=== PATIENT | male | born 1960 | race Caucasian/White ===

== ENCOUNTER 2018-11-30 13:50 | Observation (INO) ==
--- NOTE | 2018-11-30 16:11 | Emergency Department Note ---
ED Disposition Clinical Impression: Abscess of abdominal wall Cellulitis Qualifiers: Site of cellulitis: trunk Site of cellulitis of trunk: abdominal wall Qualified Code(s): L03.311 - Cellulitis of abdominal wall Disposition: Admitted as Observation Condition on Discharge: Fair - Critical Care Critical Care Time: No Attestation: On 11/30/18, the high probability of a clinically significant, sudden or life threatening deterioration of the following system(s) required my full and direct attention, intervention and personal management. The time I documented below is in addition to time spent performing reported procedures but includes the following listed in this critical care notation. Medical Decision Making - Sanjeev Inquiry Pt receiving controlled substance: No Vital Signs: 11/30/18 14:09 11/30/18 17:16 Temperature 98.2 F Temperature Source Oral Pulse Rate [Right Brachial] 104 H 89 Respiratory Rate 16 Blood Pressure [Right Arm] 121/68 155/87 H Blood Pressure Mean [Right Arm] 85 109 Blood Pressure Source [Right Arm] Automatic Cuff Blood Pressure Position [Right Arm] Supine 02 Sat by Pulse Oximetry 98 97 Oxygen Delivery Method Room Air - Lab Data Lab Results 11/30/18 16:26: WBC 13.6 H, RBC 5.22, Hgb 15.5, Hct 48.4, MCV 92.7, MCH 29.6, MCHC 32.0, RDW 13.6, Plt Count 255, MPV 7.8, Neut % (Auto) 67.2, Lymph % (Auto) 24.2, [place] % (Auto) 7.6, Eos % (Auto) 0.6, Baso % (Auto) 0.5, Neut # (Auto) 9.1 H, Lymph # (Auto) 3.3, [place] # (Auto) 1.0, Eos # (Auto) 0.1, Baso # (Auto) 0.1 11/30/18 16:26: Sodium 137, Potassium 3.5, Chloride 101, Carbon Dioxide 25, Anion Gap 14.5, BUN 13, Creatinine 0.96, Estimated Creat Clear 87, Estimated GFR 80, Est GFR ( Amer) 97, Glucose 95, Calcium 9.2, Total Bilirubin 1.0, AST 14 L, ALT 15, Alkaline Phosphatase 65, Total Protein 8.2, Albumin 3.6, Globulin 4.6 H, Albumin/Globulin Ratio 0.8 L 11/30/18 16:39: Lactate 1.2 Result diagrams: 11/30/18 16:26 11/30/18 16:26 Orders (Tests/Meds): ED MEDICATIONS Generic Name Dose Route Start Last Admin Trade Name Sharmaine PRN Reason Stop Dose Admin Vancomycin HCl 2,500 mg/ 250 mls @ 125 mls/hr 11/30/18 17:30 11/30/18 18:23 Sodium Chloride IV 12/14/18 17:29 125 mls/hr Q12H MARTÍN Administration Ceftriaxone Sodium 1 gm/ 50 mls @ 100 mls/hr 11/30/18 19:45 Sodium Chloride IV 12/14/18 19:44 Q24H MARTÍN Protocol Miscellaneous 1 each 11/30/18 16:15 11/30/18 17:27 Vancomycin Consult Request NOTAPPLIC 12/01/18 04:13 1 each CONSULT PHARMACY MARTÍN Administration ORDERS Category Date Time Status Blood Culture Stat Micro 11/30/18 16:20 Received - Physician Consults Physician Consulted: Stefanie Time: 19:44 Reason -: Admission Comment/Response: Agrees to admit the patient to the hospital. We discussed the patient's clinical information, including history, exam, laboratory and r adiology results and ED course. Per hospital procedure, I will write temporary bridge inpatient orders on the patient. Specific orders requested by the admitting physician: Add Ryan. Surgery consult. Additional Consult: Madi Time: 19:45 Reason -: Surgical Eval/Care Comment/Response: NPO after midnight General Adult HPI - General Chief complaint: Skin/Abscess/Foreign Body Stated complaint: knot on groin are since hornet sting Time Seen by Provider: 11/30/18 15:50 Mode of Arrival: Ambulatory Limitations: No Limitations Description of Symptoms (Recalled from ER Triage Doc. by RN): Bee sting 5 days MEDICAL OFFICE ASST,m S/S of infection - History of Present Illness HPI narrative: The patient was stung by a hornet in his left suprapubic area 5 days ago. Since then the area has gotten more painful, red, swollen. He has had chills but no documented fevers. Some slight drainage from the area. Last tetanus immunization was within the past couple of years. He is not diabetic. No difficulty urinating. States he has had urinary frequency. - Related Data Home Medications Medication Instructions Recorded Confirmed Sulfamethoxazole/Trimethoprim 1 each PO BID 10/01/19 10/01/19 [Bactrim DS tablet] Allergies Allergy/AdvReac Type Severity Reaction Status Date / Time NO KNOWN ALLERGIES Allergy Uncoded 02/17/17 14:56 [facility] History - Hepatitis A Screen Drug use history?: No High risk sexual behaviors?: No History of sexually transmitted infection?: No Currently employed?: No Childcare worker?: No Do you have indoor plumbing?: Yes Do you have electricity?: Yes Attestation statement:: This patient has been screened for Hepatitis A risk factors. I have reviewed the patient's past medical history: Yes ROS Obtained: Yes All systems reviewed & no additional complaints - Constitutional Constitutional: Reports chills, Denies fever(s) - Gastrointestinal Gastrointestingal: Denies: abdominal pain, vomiting - Genitourinary Male Genitourinary: Reports urinary frequency - Integumentary/Breasts Skin/Breast: Reports as per HPI Physical Exam - General General appearance: alert, in no apparent distress - Head Head exam: atraumatic, normocephalic - Eye Eye exam: Present: normal appearance, EOMI - ENT ENT exam: Present: mucous membranes moist - Neck Neck exam: Present: normal inspection, trachea midline - Chest Chest inspection: Present: normal inspection, symmetric chest wall rise - Respiratory Respiratory exam: Present: normal lung sounds bilaterally. Absent: respiratory distress - Cardiovascular Cardiovascular exam: Present: normal rhythm, tachycardia, normal heart sounds - Abdominal Exam Abdominal exam: Present: soft. Absent: distention, tenderness - Extremities Exam Extremities exam: Present: normal inspection - Neurological Exam Neurological exam: Present: alert, oriented X3 - Psychiatric Psychiatric exam: Present: normal affect, normal mood - Skin Skin exam: Present: warm, dry - Other Other exam information: 5 x 10 cm indurated tender mass in his left suprapubic area with an overlying 1.5 cm diameter scab. Unable to express any drainage. Unable to palpably any fluctuance. Erythema extends from the scab approximately 15 cm diameter. No significant swelling of penis or scrotum. Patient is not circumcised and foreskin is easily retractable.
[2018-11-30 17:04] LABS: Albumin Level 3.6 gm/dL (3.4-5.0); Albumin/Globulin Ratio 0.8 (1.1-1.8); Anion Gap 14.5 mEq/L (5-15); Calcium 9.2 mg/dL (8.5-10.1); Globulin 4.6 gm/dl (1.3-3.2); Total Protein,Serum 8.2 gm/dL (6.4-8.2)
[2018-11-30 17:06] LABS: Basophils # 0.1 K/mm3 (0-0.2); Basophils % 0.5 % (0.1-2.0); Eosinophils # 0.1 K/mm3 (0.0-0.4); Eosinophils % 0.6 % (0.1-12.0); Hematocrit 48.4 % (42.0-52.0); Hemoglobin 15.5 g/dL (14.1-18.0); Lymphocytes # 3.3 K/mm3 (0.7-4.5); Lymphocytes % 24.2 % (10-50); Mean Corpuscular Volume 92.7 fl (80-94); Mean Platelet Volume 7.8 fl (7.4-10.4); Monocytes % 7.6 % (1.7-9.3); Neutrophils # 9.1 K/mm3 (1.8-7.8); Neutrophils % 67.2 % (37.0-80.0); Platelet Count 255 K/mm3 (142-424); Red Blood Count 5.22 M/mm3 (4.60-6.20); Red Cell Distribution Width 13.6 % (11.5-17.5); White Blood Count 13.6 K/mm3 (4.8-10.8)
--- NOTE | 2018-12-01 06:54 | Consult Report ---
*Admission Date: 12/01/18 *Reason for consult:: Abscess *History of present illness: Patient is a 58-year-old male who states that last Thursday or , 6 or 7 days ago, he was stung by a hornet in the suprapubic location. He developed a small abscess. Over the past week it has increased in size with increasing swelling, redness, and tenderness. He presented to the emergency department late yesterday afternoon. He was found to have evidence of appreciable soft tissue infection was admitted for inpatient management for intravenous antibiotics and surgical consultation. Review of Systems - Review of Systems Review of systems:: pertinent systems reviewed and negative unless documented below [facility] History Medical History: Denies:: Cancer, Diabetes Mellitus Type 1, Diabetes Mellitus Type 2 *Have you ever received a pneumonia vaccine?: No *Have you received a flu vaccine this season?: No Other Surgeries: Yes: Hernia Repair, Other - *Social History Smoking Status: Former smoker Tobacco Type: cigarettes # Packs/Day (cigarettes): 1 #Yrs smoked (if former smoker): 40 Smoking End Date: 03/02/2007 Alcohol Intake: current Alcohol Intake Frequency:: a few times a month *Occupational Status:: employed Household Members: spouse *Travel in the last 8 weeks: None Family Hx:: No significant family history Meds Home Medications Medication Instructions Recorded Confirmed Type Sulfamethoxazole/Trimethoprim 1 each PO BID 11/30/18 11/30/18 History [Bactrim DS tablet] Allergies Allergy/AdvReac Type Severity Reaction Status Date / Time NO KNOWN ALLERGIES Allergy Uncoded 02/17/17 14:56 Exam Vital signs and Labs for Last 24 Hours: Temp Pulse Resp BP Pulse Ox 98.4 F 83 20 134/88 96 12/01/18 04:00 12/01/18 04:00 12/01/18 04:00 12/01/18 04:00 12/01/18 04:00 Laboratory Results - last 24 hr 11/30/18 16:26: WBC 13.6 H, RBC 5.22, Hgb 15.5, Hct 48.4, MCV 92.7, MCH 29.6, MCHC 32.0, RDW 13.6, Plt Count 255, MPV 7.8, Neut % (Auto) 67.2, Lymph % (Auto) 24.2, [place] % (Auto) 7.6, Eos % (Auto) 0.6, Baso % (Auto) 0.5, Neut # (Auto) 9.1 H, Lymph # (Auto) 3.3, [place] # (Auto) 1.0, Eos # (Auto) 0.1, Baso # (Auto) 0.1 11/30/18 16:26: Sodium 137, Potassium 3.5, Chloride 101, Carbon Dioxide 25, Anion Gap 14.5, BUN 13, Creatinine 0.96, Estimated Creat Clear 87, Estimated GFR 80, Est GFR ( Amer) 97, Glucose 95, Calcium 9.2, Total Bilirubin 1.0, AST 14 L, ALT 15, Alkaline Phosphatase 65, Total Protein 8.2, Albumin 3.6, Globulin 4.6 H, Albumin/Globulin Ratio 0.8 L 11/30/18 16:39: Lactate 1.2 I & O for Last 24 hours: Intake & Output 11/28/18 11/29/18 11/30/18 12/01/18 11:59 11:59 11:59 11:59 Intake Total 450 / 450 Balance 450 / 450 Weight 264 lb 2 oz - *Routine HEENT Exam Head: Present: normocephalic Eye: Present: EOMI, PERRL ENT: Present: mucous membranes moist - *Routine Neck Exam Present: supple. Absent: lymphadenopathy - *Routine Respiratory Exam Present: CTA bilaterally - *Routine Cardiovascular Exam Present: RRR - *Routine Abdominal Exam Present: soft, normoactive bowel sounds. Absent: tenderness - *Routine Extremities Exam Absent: cyanosis, clubbing, edema - *Routine Skin Exam Present: warm. Absent: rash Comments: In the left suprapubic location there is evidence of cellulitis spanning greater than 10 cm. Centrally there is an area of induration. No evidence of any fluctuance. There there is 1 or 2 blackish punctate areas which have some minimal drainage. Minimal swelling of the penile area with no evidence of any cellulitis tracking to the genitalia. - *Routine Neurological Exam Present: alert, oriented X3 - Detailed Eye Exam Eyelids: Left normal inspection Results - Labs 11/30/18 16:26 11/30/18 16:26 Laboratory Results - last 24 hr 11/30/18 16:26: WBC 13.6 H, RBC 5.22, Hgb 15.5, Hct 48.4, MCV 92.7, MCH 29.6, M CHC 32.0, RDW 13.6, Plt Count 255, MPV 7.8, Neut % (Auto) 67.2, Lymph % (Auto) 24.2, [place] % (Auto) 7.6, Eos % (Auto) 0.6, Baso % (Auto) 0.5, Neut # (Auto) 9.1 H, Lymph # (Auto) 3.3, [place] # (Auto) 1.0, Eos # (Auto) 0.1, Baso # (Auto) 0.1 11/30/18 16:26: Sodium 137, Potassium 3.5, Chloride 101, Carbon Dioxide 25, Anion Gap 14.5, BUN 13, Creatinine 0.96, Estimated Creat Clear 87, Estimated GFR 80, Est GFR ( Amer) 97, Glucose 95, Calcium 9.2, Total Bilirubin 1.0, AST 14 L, ALT 15, Alkaline Phosphatase 65, Total Protein 8.2, Albumin 3.6, Globulin 4.6 H, Albumin/Globulin Ratio 0.8 L 11/30/18 16:39: Lactate 1.2 Assessment and Plan - Assessment and plan all Dx Assessment and Plan for all problems:: Plan for incision and drainage with possible debridement later today.
[2018-12-01 07:17] LABS: Basophils # 0.1 K/mm3 (0-0.2); Eosinophils # 0.1 K/mm3 (0.0-0.4); Monocytes # 0.9 K/mm3 (0.1-1.0); Neutrophils # 7.6 K/mm3 (1.8-7.8); Red Cell Distribution Width 13.7 % (11.5-17.5)
[2018-12-01 07:30] LABS: Basophils % 0.6 % (0.1-2.0); Eosinophils % 1.2 % (0.1-12.0); Hematocrit 42.9 % (42.0-52.0); Lymphocytes # 3.3 K/mm3 (0.7-4.5); Lymphocytes % 27.1 % (10-50); Mean Corpuscular HGB Conc 32.3 g/dL (31.8-35.4); Mean Corpuscular Volume 91.8 fl (80-94); Mean Platelet Volume 7.4 fl (7.4-10.4); Monocytes % 7.8 % (1.7-9.3); Neutrophils % 63.3 % (37.0-80.0); Platelet Count 250 K/mm3 (142-424); Red Blood Count 4.67 M/mm3 (4.60-6.20)
[2018-12-01 07:31] LABS: Hemoglobin 13.8 g/dL (14.1-18.0)
--- NOTE | 2018-12-01 07:39 | Pharmacy Consult Notes ---
[facility] Pharmacy VTE Monitoring - Patient Demographics Admission date: 12/01/18 Report Date: 12/01/18 Time: 07:39 Allergies/Adverse Reactions: Patient Allergies NO KNOWN ALLERGIES Allergy (Uncoded 02/17/17 14:56) Height: 1.83 m Weight: 119.805 kg Patient Problems: Current Active Problems Abscess of abdominal wall (Acute) Cellulitis (Acute) - VTE Risk Labs: VTE Related Lab Results Hgb 13.8 g/dL (14.1-18.0) L D 12/01/18 07:06 Hct 42.9 % (42.0-52.0) 12/01/18 07:06 Plt Count 250 K/mm3 (142-424) 12/01/18 07:06 BUN 13 mg/dL (7-18) 11/30/18 16:26 Creatinine 0.96 mg/dL (0.70-1.30) 11/30/18 16:26 Estimated Creat Clear 87 mL/min (50-200) 11/30/18 16:26 Was VTE Risk Assessment Performed: Yes VTE Score: 3 VTE Risk Level: Low Risk Clinical Trial Participant: No - Prophylaxis VTE Prophylaxis Ordered?: Yes Types of VTE Prophylaxis: TEDS Knee High
--- NOTE | 2018-12-01 08:23 | Pharmacy Consult Notes ---
- Pharmacy Consult Date: 12/01/18 Time: 08:20 Referring provider: DR. MARIE Reason for Consult:: VANCOMYCIN DOSING Allergies and ADEs:: Allergies Allergy/AdvReac Type Severity Reaction Status Date / Time No Known Allergies Allergy Unverified 12/01/18 08:14 Home Medications:: Home Medications Medication Instructions Recorded Confirmed Type Sulfamethoxazole/Trimethoprim 1 each PO BID 11/30/18 11/30/18 History [Bactrim DS tablet] Height: 1.83 m Weight: 119.805 kg Laboratory Results:: Laboratory Results - last 24 hr 11/30/18 16:26: WBC 13.6 H, RBC 5.22, Hgb 15.5, Hct 48.4, MCV 92.7, MCH 29.6, MCHC 32.0, RDW 13.6, Plt Count 255, MPV 7.8, Neut % (Auto) 67.2, Lymph % (Auto) 24.2, [place] % (Auto) 7.6, Eos % (Auto) 0.6, Baso % (Auto) 0.5, Neut # (Auto) 9.1 H, Lymph # (Auto) 3.3, [place] # (Auto) 1.0, Eos # (Auto) 0.1, Baso # (Auto) 0.1 11/30/18 16:26: Sodium 137, Potassium 3.5, Chloride 101, Carbon Dioxide 25, Anion Gap 14.5, BUN 13, Creatinine 0.96, Estimated Creat Clear 87, Estimated GFR 80, Est GFR ( Amer) 97, Glucose 95, Calcium 9.2, Total Bilirubin 1.0, AST 14 L, ALT 15, Alkaline Phosphatase 65, Total Protein 8.2, Albumin 3.6, Globulin 4.6 H, Albumin/Globulin Ratio 0.8 L 11/30/18 16:39: Lactate 1.2 12/01/18 07:06: WBC 12.0 H, RBC 4.67, Hgb 13.8 L D, Hct 42.9, MCV 91.8, MCH 29.6, MCHC 32.3, RDW 13.7, Plt Count 250, MPV 7.4, Neut % (Auto) 63.3, Lymph % (Auto) 27.1, [place] % (Auto) 7.8, Eos % (Auto) 1.2, Baso % (Auto) 0.6, Neut # (Auto) 7.6, Lymph # (Auto) 3.3, [place] # (Auto) 0.9, Eos # (Auto) 0.1, Baso # (Auto) 0.1 12/01/18 07:06: Hemoglobin A1c 6.2 Medical History: Denies:: Cancer, Diabetes Mellitus Type 1, Diabetes Mellitus Type 2 Assessment and Plan - Assessment and plan all Dx Assessment and Plan for all problems:: RECOMMEND CONTINUING WITH VANCOMYCIN 2250 MG Q12H STARTING TONIGHT AT 2100. PATIENT HAS BEEN GETTING VANCOMYCIN 2500 Q12H SINCE YESTERDAY OVERNIGHT WHEN WEIGHT WAS REPORTED 154 KG. WILL OBTAIN TROUGH LEVEL IN AM PRIOR TO 0900 DOSE. PHARMACY WILL FOLLOW DAILY AND ADJUST APPROPRIATE. GLENN ZARATE, PHARMD
--- NOTE | 2018-12-01 08:29 | History & Physical Report ---
*Admission Date: 11/30/18 *Chief complaint: Insect bite on left groin *History of present illness: Patient is a 58-year-old male who states that last Thursday or , 6 or 7 days ago, he was stung by a hornet in the suprapubic location. He developed a small abscess. Over the past week it has increased in size with increasing swelling, redness, and tenderness. He presented to the emergency department late yesterday afternoon. He was found to have evidence of appreciable soft tissue infection was admitted for inpatient management for intravenous antibiotics and surgical consultation. [facility] History I have reviewed the patient's past medical history: Yes Medical History: Denies:: Cancer, Diabetes Mellitus Type 1, Diabetes Mellitus Type 2 *Have you ever received a pneumonia vaccine?: No *Have you received a flu vaccine this season?: No Other Surgeries: Yes: Hernia Repair, Other - *Social History Smoking Status: Former smoker Tobacco Type: cigarettes # Packs/Day (cigarettes): 1 #Yrs smoked (if former smoker): 40 Smoking End Date: 03/02/2007 Alcohol Intake: current Alcohol Intake Frequency:: a few times a month *Occupational Status:: employed Household Members: spouse *Travel in the last 8 weeks: None Family Hx:: No significant family history Review of Systems - Review of Systems Review of systems:: pertinent systems reviewed and negative unless documented below Meds Home Medications Medication Instructions Recorded Confirmed Type Sulfamethoxazole/Trimethoprim 1 each PO BID 11/30/18 11/30/18 History [Bactrim DS tablet] Allergies Allergy/AdvReac Type Severity Reaction Status Date / Time No Known Allergies Allergy Unverified 12/01/18 08:14 Exam Vital signs and Labs for Last 24 Hours: Temp Pulse Resp BP Pulse Ox 97.9 F 83 18 134/98 H 92 L 12/01/18 08:00 12/01/18 08:00 12/01/18 08:00 12/01/18 08:00 12/01/18 08:00 Laboratory Results - last 24 hr 11/30/18 16:26: WBC 13.6 H, RBC 5.22, Hgb 15.5, Hct 48.4, MCV 92.7, MCH 29.6, MCHC 32.0, RDW 13.6, Plt Count 255, MPV 7.8, Neut % (Auto) 67.2, Lymph % (Auto) 24.2, [place] % (Auto) 7.6, Eos % (Auto) 0.6, Baso % (Auto) 0.5, Neut # (Auto) 9.1 H, Lymph # (Auto) 3.3, [place] # (Auto) 1.0, Eos # (Auto) 0.1, Baso # (Auto) 0.1 11/30/18 16:26: Sodium 137, Potassium 3.5, Chloride 101, Carbon Dioxide 25, Anion Gap 14.5, BUN 13, Creatinine 0.96, Estimated Creat Clear 87, Estimated GFR 80, Est GFR ( Amer) 97, Glucose 95, Calcium 9.2, Total Bilirubin 1.0, AST 14 L, ALT 15, Alkaline Phosphatase 65, Total Protein 8.2, Albumin 3.6, Globulin 4.6 H, Albumin/Globulin Ratio 0.8 L 11/30/18 16:39: Lactate 1.2 12/01/18 07:06: WBC 12.0 H, RBC 4.67, Hgb 13.8 L D, Hct 42.9, MCV 91.8, MCH 29.6, MCHC 32.3, RDW 13.7, Plt Count 250, MPV 7.4, Neut % (Auto) 63.3, Lymph % (Auto) 27.1, [place] % (Auto) 7.8, Eos % (Auto) 1.2, Baso % (Auto) 0.6, Neut # (Auto) 7.6, Lymph # (Auto) 3.3, [place] # (Auto) 0.9, Eos # (Auto) 0.1, Baso # (Auto) 0.1 12/01/18 07:06: Hemoglobin A1c 6.2 I & O for Last 24 hours: Intake & Output 11/28/18 11/29/18 11/30/18 12/01/18 11:59 11:59 11:59 11:59 Intake Total 450 / 450 Balance 450 / 450 Weight 264 lb 2 oz Narrative: Patient is pleasant, oriented x3. Lungs are clear, oropharynx clear, no JVD, ENT exam otherwise clear. Heart rate regular without murmurs. Abdomen soft. Triangular-shaped 10 cm x 8 cm x 7 cm area of induration and redness in the left inguinal crease consistent with reported injury and ER exam last night. No distal pedal edema or clubbing. Neurologic exam intact. Assessment and Plan (1) Abscess of abdominal wall Current visit: Yes Status: Acute Category: Medical Code(s): L02.211 - Cutaneous abscess of abdominal wall (2) Cellulitis Current visit: Yes Status: Acute Qualifiers: Site of cellulitis: trunk Site of cellulitis of trunk: abdominal wall Qualified Code(s): L03.311 - Cellulitis of abdominal wall Category: Medical Code(s): L03.90 - Cellulitis, unspecified Agree with admission to hospital for surgical consultation.
--- NOTE | 2018-12-01 14:12 | Progress Note ---
[facility] Anesthesia Checklist - Structural Data Admitted From: Inpatient Planned Operative Procedure/s: i/d perirectal abcess Consent for Planned Operative Procedure(s) Verified: Yes - Airway Assessment C-Spine Mobility Assessed: Yes TMJ Mobility Assessed: Yes Dentition: Good Dentition - Neurological Assessment Level of Consciousness: Awake, Alert, Appropriate - Anesthesia Plan Anesthesia Risk discussed: Yes Anesthesia Plan: Verified ASA Class: II Anesthesia Type: General [facility] History I have reviewed the patient's past medical history: Yes Medical History: Denies:: Cancer, Diabetes Mellitus Type 1, Diabetes Mellitus Type 2 *Have you ever received a pneumonia vaccine?: No *Have you received a flu vaccine this season?: No Anesthesia experience/problems:: none Other Surgeries: Yes: Hernia Repair, Other - *Social History Smoking Status: Former smoker Tobacco Type: cigarettes # Packs/Day (cigarettes): 1 #Yrs smoked (if former smoker): 40 Smoking End Date: 03/02/2007 Alcohol Intake: current Alcohol Intake Frequency:: a few times a month Substance Use Type: denies use *Occupational Status:: employed Household Members: spouse *Travel in the last 8 weeks: None Family Hx:: No significant family history
--- NOTE | 2018-12-01 14:15 | Progress Note ---
[facility] Anesthesia Record Part I Intake, IV Amount: 1,500 Estimated blood loss (mL): 0 Urine output (mL): 0 Blood Pressure: 130/74 SaO2: 94 Pulse Rate: 79 Respiratory Rate: 12 Temperature: 97.5 F Patient is:: Drowsy, Stable Stable to PACU at:: 14:10
--- NOTE | 2018-12-01 14:16 | Progress Note ---
[facility] Anesthesia Record Part II Discharge Time: 14:40 Destination: floor PACU nurse assessment reviewed?: Yes Patient Condition:: Good Anesthesia Complications:: None Swallowing reflex intact?: Yes Cyanosis?: No
--- NOTE | 2018-12-01 14:19 | Operative Note ---
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 Initially he has a small area of inflammation. However, he has had dramatic increase in swelling, redness, and tenderness. He had been seen and evaluated emergency department late yesterday afternoon and diagnosed with appreciable soft tissue infection and abscess. He was admitted for inpatient management for intravenous antibiotics and started on vancomycin and Rocephin. Surgical consultation was obtained for incision and drainage. Operative findings:: Deep abscess cavity with large amount of thick pus Operative note:: Patient was taken to the operating room. He was positioned in a supine position. General anesthesia was induced via LMA. The area was prepped and draped in the standard surgical fashion. There is a small black punctate area which was easily removed. There was purulent drainage which then exuded from this area. Incision was made at the site. Tissues were rather thickened and inflamed. There was some thick pus present. This was sent for culture. Wound was probed and it did track deeply and into the inguinal region. Wound was opened several centimeters to allow for adequate drainage. Tissues appeared viable but markedly inflamed. Wound was irrigated. Hemostasis was achieved with electrocautery. Local anesthetic was infiltrated in the region of the wound as well as for an inguinal nerve block. Wound was packed with a saline moistened Kerlix gauze and covered with clean dry sterile dressing. Condition: stable Disposition: PACU Specimens:: Cultures Complications:: None immediately apparent
--- NOTE | 2018-12-02 07:44 | Discharge Summary ---
General - General Admission date:: 11/30/18 Discharge date: 12/02/18 HPI HPI: Patient is a 58-year-old male who states that last Thursday or , 6 or 7 days ago, he was stung by a hornet in the suprapubic location. He developed a small abscess. Over the past week it has increased in size with increasing swelling, redness, and tenderness. He presented to the emergency department late yesterday afternoon. He was found to have evidence of appreciable soft tissue infection was admitted for inpatient management for intravenous antibiotics and surgical consultation. Hospital Course Hospital Course: Patient was admitted. Surgical consultation was obtained, patient was taken to the OR, and subjected to the following procedure: Patient was taken to the operating room. He was positioned in a supine position. General anesthesia was induced via LMA. The area was prepped and draped in the standard surgical fashion. There is a small black punctate area which was easily removed. There was purulent drainage which then exuded from this area. Incision was made at the site. Tissues were rather thickened and inflamed. There was some thick pus present. This was sent for culture. Wound was probed and it did track deeply and into the inguinal region. Wound was opened several centimeters to allow for adequate drainage. Tissues appeared viable but markedly inflamed. Wound was irrigated. Hemostasis was achieved with electrocautery. Local anesthetic was infiltrated in the region of the wound as well as for an inguinal nerve block. Wound was packed with a saline moistened Kerlix gauze and covered with clean dry sterile dressing. Above OR note per surgery. Patient tolerated the procedure well. Afterwards was transferred to the floor in good condition. Overnight he is done well, has had no pain and has required and requested no pain medications. Wound looks great with clean edges, no drainage through the packing and very minimal serous soaking of the Curlex. Plan will be to discharge patient home today with twice daily dressing changes. His will be able to assist him with this. We will prescribe Bactrim and clindamycin for dual coverage of the significant cellulitis while we await cultures. He will see surgery next week in follow-up and I will see him in a couple of weeks to resume his normal medical care. Objective Vital signs: Temp Pulse Resp BP Pulse Ox 97.5 F L 67 18 133/86 95 12/02/18 04:00 12/02/18 04:00 12/02/18 04:00 12/02/18 04:00 12/02/18 04:00 no acute distress - *Routine HEENT Exam Head: Present: normocephalic Eye: Present: EOMI - Routine Chest/Breast/Axilla Exam Chest wall: Absent: tenderness Breast: Absent: tenderness - *Routine Respiratory Exam Present: CTA bilaterally. Absent: accessory muscle use - *Routine Cardiovascular Exam Present: RRR, Normal S1, Normal S2 - *Routine Abdominal Exam Present: soft Comments: Cellulitis site has packing in the middle. Much less induration and drainage. Kerlixes soaked with serous drainage but no blood. - *Routine Extremities Exam Absent: cyanosis, clubbing, edema DS: Diagnosis - Discharge Diagnosis (1) Abscess of abdominal wall Status: Acute (2) Cellulitis Status: Acute Discharge Plan - Patient Discharge Instructions ACTIVITY: Continue current activity DIET: continue same diet Patient Instructions: Cellulitis, DI for Incision and Drainage of a Skin Abscess, Incision and Drainage of a Skin Abscess, DI for Surgical Site Infection, DI for Cellulitis -- Child, DI for Skin Abscess, DI for Scrotal Abscess - Follow up Plan Follow up with: Sergo Barraza MD [Staff Physician] - 1 week Pepe Watts MD [Primary Care Provider] - 2 weeks Disposition: Home, Self-Assisted Medications: Home Medications Medication Instructions Recorded Confirmed Type Clindamycin HCl [Clindamycin HCl 300 mg PO Q8 #21 cap 12/02/18 Rx 300mg Cap] Sulfamethoxazole/Trimethoprim 1 each PO BID #14 tab 12/02/18 Rx [Bactrim DS tablet] Prescriptions/Medication Reconciliation: New Clindamycin HCl [Clindamycin HCl 300mg Cap] 300 mg PO Q8 #21 cap Continued Sulfamethoxazole/Trimethoprim [Bactrim DS tablet] 1 each PO BID #14 tab - Problem Reconciliation Problems Reviewed?: Yes
--- NOTE | 2018-12-02 08:02 | Progress Note ---
Subjective Patient reports: feels better Exam Vital signs and Labs for Last 24 Hours: Temp Pulse Resp BP Pulse Ox 97.5 F L 67 18 133/86 95 12/02/18 04:00 12/02/18 04:00 12/02/18 04:00 12/02/18 04:00 12/02/18 04:00 I & O for Last 24 hours: Intake & Output 11/29/18 11/30/18 12/01/18 12/02/18 11:59 11:59 11:59 11:59 Intake Total 450 / 450 2468 / 2468 Balance 450 / 450 2468 / 2468 Weight 264 lb 2 oz 264 lb 2 oz Microbiology Reports for the Last 24 Hours: Microbiology 12/01/18 13:51 Groin - Abscess Gram Stain - Final - *Routine Skin Exam Comments: Persistent erythema and induration. No evidence of any necrosis. Progress Note: A&P (1) Abscess of abdominal wall Status: Acute Current Visit: Yes (2) Cellulitis Status: Acute Current Visit: Yes Assessment and Plan for All Diagnoses:: Outpatient wound care and antibiotics.
[2018-12-02 08:42] VITALS: BP 146/87
[2018-12-02 08:56] LABS: Anion Gap 14.8 mEq/L (5-15)
== END 2018-12-02 12:45 | disposition home or self-care (01) ==
LOC: 2ND 13:50 → UTC 13:50 → ER 13:50 → 2ND 20:31
PROVIDERS: ADMIT Internal Medicine Adolescent Medicine; ATTEND Internal Medicine Adolescent Medicine
CPT/HCPCS: 36415; 80048; 80053; 80202; 83036; 83605; 85025; 87040; 87070; 87075; 87077; 87186; 87205; 96365; 96367; 99284; G0378; J2405; J3370

== ENCOUNTER 2018-12-20 14:50 | Outpatient (CLI) | payer OTHER, SELFPAY ==
[2018-12-20 15:07] VITALS: BP 142/86; PULSE 69; RESP 18; TEMP 36.8; O2SAT 98
== END 2018-12-20 15:37 | disposition home or self-care (01) ==
LOC: INF 14:53
PROVIDERS: PCP Internal Medicine Adolescent Medicine; Visit Provider Surgery
DX: Z48.01 Encounter for change or removal of surgical wound dressing (principal); L02.211 Cutaneous abscess of abdominal wall; L03.90 Cellulitis, unspecified
CPT/HCPCS: 96372

== ENCOUNTER 2019-07-04 20:37 | Observation (INO) | payer BC, SELFPAY ==
[2019-07-04 20:37] VITALS: BP 179/97; PULSE 101; RESP 16; TEMP 36.9; O2SAT 96; BMI 38.0
--- NOTE | 2019-07-04 20:52 | HMH.EDUTC ---
[facility] Disposition Condition on Discharge: Fair Time of Disposition: 21:14 <Dayron Porras - Last Filed: 07/04/19 21:07> <Wicho Oglesby - Last Filed: 07/04/19 21:28> Clinical Impression: Abscess of buttock, right, Abscess of left leg excluding foot Cellulitis Qualifiers: Site of cellulitis: buttock Qualified Code(s): L03.317 - Cellulitis of buttock Obesity Qualifiers: Obesity type: due to excess calories Obesity classification: adult class 3 (BMI >= 40) Serious obesity comorbidity presence: with serious comorbidity Body mass index: BMI 40.0-44.9 Qualified Code(s): E66.01 - Morbid (severe) obesity due to excess calories; Z68.41 - Body mass index (BMI) 40.0-44.9, adult Disposition: Admitted as Observation Instructions: Cellulitis, Boil Referrals: Pepe Watts MD [Primary Care Provider] - Medical Decision Making - Medical Records Medical records reviewed: No: I reviewed the patient's medical records. - Sanjeev Inquiry Pt receiving controlled substance: No <Dayron Porras - Last Filed: 07/04/19 21:07> - Lab Data Lab results reviewed: Yes: I reviewed the patient's lab results. - Physician Consults Physician Consulted: kumar Reason -: Admission <Wicho Oglesby - Last Filed: 07/04/19 21:28> Vital Signs: 07/04/19 20:37 07/04/19 21:08 07/04/19 21:14 Temperature 98.4 F 98.4 F 98.4 F Temperature Source Oral Oral Oral Pulse Rate [Left Radial] 101 H 101 H 101 H Respiratory Rate 16 16 16 Blood Pressure [Right Arm] 179/97 H 179/97 H 179/97 H Blood Pressure Mean [Right Arm] 124 124 124 Blood Pressure Source [Right Arm] Automatic Cuff Automatic Cuff Automatic Cuff Blood Pressure Position [Right Arm] Sitting Sitting Sitting 02 Sat by Pulse Oximetry 96 96 96 Oxygen Delivery Method Room Air Room Air Room Air Orders (Tests/Meds): ORDERS Category Date Time Status Complete Blood Count Auto Diff Stat Lab 07/04/19 21:21 Ordered Comprehensive Metabolic Panel Stat Lab 07/04/19 21:21 Ordered Lactic Acid Stat Lab 07/04/19 21:21 Ordered Blood Culture Stat Micro 07/04/19 21:21 Ordered Wound Culture and Gram Stain Stat Micro 07/04/19 21:04 Received Medical Decision Narrative: I transferred him to the er due to his history of having to be seen by surgery in the past, the size of the right buttock lesion, and per his request to 'get something done tonight about these places . (Dayron Porras) [facility] HPI - General Mode of Arrival: Ambulatory Source of Information: Patient Limitations: No Limitations Description of Symptoms (Recalled from Triage Doc. by RN): pt stated he has a small bump on his right thigh and left hip that he has been popping but it hasnt gotten better - History of Present Illness Provider Complaint: He is here with a complaint of having 2 abscesses. He has one on his inner right buttock. The other one is on his left lateral upper thigh area. He has a history of having similar lesions in the past. Last year he was taken to surgery by Dr. Barraza to have an abcess drained that was in a similar area. He has been taking an antibiotic that was prescribed by his surgeon for his last abscess for the past 2 days. He is unsure what the antibiotic is called. He states that it has not helped any yet. He would like to have the abscess on his buttock drained tonight if at all possible. He states that he would like to go to the er if it is a possibility to have his surgeon consulted. He states he has been having severe pain from the abscess on his buttock. Onset (ago): minute(s) <Dayron Porras - Last Filed: 07/04/19 21:07> - History of Present Illness Severity: moderate Associated symptoms: denies other symptoms Treatments prior to arrival: none <Wicho Oglesby - Last Filed: 07/04/19 21:28> - General Stated complaint: bump on right leg Time Seen by Provider: 07/04/19 20:40 - Related Data Home Medications Medication Instructions Recorded Confirmed No Known Home Medications 04/04/19 05/0
[2019-07-04 21:08] VITALS: BP 179/97; PULSE 101; RESP 16; TEMP 36.9; O2SAT 96; BMI 37.9
--- NOTE | 2019-07-04 21:12 | PC.NURSE ---
PATIENT SENT BACK TO ER PER FATMATA BAER APRN FOR FURTHER EVALUATION AND PER PATIENT REQUEST
[2019-07-04 21:14] VITALS: BP 179/97; PULSE 101; RESP 16; TEMP 36.9; O2SAT 96; BMI 43.4
[2019-07-04 21:37] LABS: Basophils # 0.2 K/mm3 (0-0.2); Basophils % 1.6 % (0.1-2.0); Eosinophils # 0.5 K/mm3 (0.0-0.4); Eosinophils % 4.5 % (0.1-12.0); Hematocrit 44.8 % (42.0-52.0); Hemoglobin 14.9 g/dL (14.1-18.0); Lymphocytes # 3.4 K/mm3 (0.7-4.5); Mean Corpuscular HGB Conc 33.2 g/dL (31.8-35.4); Mean Corpuscular Hemoglobin 29.6 pg (27.0-31.2); Mean Corpuscular Volume 89.2 fl (80-94); Mean Platelet Volume 7.7 fl (7.4-10.4); Monocytes # 0.7 K/mm3 (0.1-1.0); Monocytes % 7.1 % (1.7-9.3); Neutrophils # 5.2 K/mm3 (1.8-7.8); Neutrophils % 52.9 % (37.0-80.0); Platelet Count 275 K/mm3 (142-424); Red Blood Count 5.02 M/mm3 (4.60-6.20); Red Cell Distribution Width 12.8 % (11.5-17.5); White Blood Count 9.9 K/mm3 (4.8-10.8)
[2019-07-04 21:43] LABS: Chloride 107 mmol/L (98-107); Potassium 3.8 mmoL/L (3.5-5.1); Sodium 142 mmol/L (136-145)
[2019-07-04 21:45] LABS: Lactic Acid 1.4 mmol/L (0.7-2.1)
[2019-07-04 21:46] LABS: Alanine Aminotransferase 23 U/L (12-78); Albumin/Globulin Ratio 1.2 (1.1-1.8); Alkaline Phosphatase 58 U/L (38-126); Anion Gap 13.8 mEq/L (5-15); Aspartate Amino Transferase 27 U/L (17-59); Bilirubin,Total 0.4 mg/dl (0.2-1.3); Blood Urea Nitrogen 12 mg/dl (9-20); Carbon Dioxide 25 mmol/L (22.0-30.0); Creatinine Clearance Estimated 85 mL/min (50-200); Estimated Glomerular Filt Rate 86 ml/min (>60); GFR (African American) 104 ML/MIN (>60); Globulin 3.4 g/dL (1.3-3.2); Total Protein,Serum 7.4 g/dl (6.3-8.2)
[2019-07-04 21:47] LABS: Calcium 9.2 mg/dl (8.4-10.2); Glucose 127 mg/dl (74-100)
--- NOTE | 2019-07-04 22:00 | PC.NURSE ---
pharmacy recommendation vancomycin 2.5gram for a loading dose, mixed in a 500ml bag of NS. advised Vancomycin 2 grams IV Q12H after that. orders entered.
[2019-07-04 22:20] VITALS: BP 167/86; PULSE 98; RESP 16; O2SAT 96
[2019-07-04 22:40] VITALS: BP 167/96; PULSE 96; RESP 16; TEMP 36.8; O2SAT 97
[2019-07-04 22:48] VITALS: BP 180/95; PULSE 96; RESP 18; TEMP 36.6; O2SAT 96; BMI 37.3
--- NOTE | 2019-07-04 22:48 | PC.NURSE ---
PT ARRIVED TO THE FLOOR VIA W/C FROM ED @ 2959.
[2019-07-05] VITALS (23 sets, daily range): BP systolic 118–160; BP diastolic 69–100; PULSE 62–88; RESP 14–23; TEMP 36.3–43; O2SAT 91–97
[2019-07-05 06:29] LABS: Basophils # 0.1 K/mm3 (0-0.2); Eosinophils # 0.4 K/mm3 (0.0-0.4); Monocytes # 0.5 K/mm3 (0.1-1.0)
[2019-07-05 06:38] LABS: Basophils % 0.6 % (0.1-2.0); Eosinophils % 5.7 % (0.1-12.0); Hematocrit 40.9 % (42.0-52.0); Lymphocytes # 3.5 K/mm3 (0.7-4.5); Lymphocytes % 44.7 % (10-50); Mean Corpuscular Hemoglobin 29.7 pg (27.0-31.2); Mean Corpuscular Volume 89.8 fl (80-94); Mean Platelet Volume 7.8 fl (7.4-10.4); Neutrophils # 3.2 K/mm3 (1.8-7.8); Platelet Count 251 K/mm3 (142-424); Red Blood Count 4.56 M/mm3 (4.60-6.20); Red Cell Distribution Width 12.6 % (11.5-17.5); White Blood Count 7.7 K/mm3 (4.8-10.8)
[2019-07-05 06:40] LABS: Hemoglobin 13.5 g/dL (14.1-18.0)
[2019-07-05 06:55] LABS: Chloride 109 mmol/L (98-107); Potassium 3.9 mmoL/L (3.5-5.1); Sodium 141 mmol/L (136-145)
[2019-07-05 06:58] LABS: Anion Gap 9.9 mEq/L (5-15); Blood Urea Nitrogen 12 mg/dl (9-20); Carbon Dioxide 26 mmol/L (22.0-30.0); Creatinine Clearance Estimated 137 mL/min (50-200); Estimated Glomerular Filt Rate 115 ml/min (>60); GFR (African American) 139 ML/MIN (>60)
[2019-07-05 06:59] LABS: Calcium 8.5 mg/dl (8.4-10.2); Glucose 123 mg/dl (74-100); Magnesium 1.9 mg/dl (1.6-2.3)
--- NOTE | 2019-07-05 07:00 | PC.NURSE ---
A&OX3. PERRLA, CHANNEL DIRECTOR EQUAL BILAT. LUNG CLEAR T/O AUSCULTATION, TOLERATED RA WELL. PULSES +2, CAP REFILL <3SEC. ABDOMEN NONDISTENDED, ACTIVE BOWEL SOUNDS, SOFT AND NONTENDER PER PALPATION. ABSCESS NOTED TO RIGHT GLUTEAL CLEFT, TELFA AND TEGADERM WAS APPLIED FOLLOWING MEASURING ABSCESS, ABSCESS NOTED 2CMX2.5CM, YELLOW DRAINAGE NOTED TO THIS ABSCESS, REDNESS NOTED EXTENDING DISTALLY TO RIGHT GROIN/THIGH AREA. ABSCESS NOTED TO LEFT HIP MEASURING 2.5CMX2.5CM, NO DRAINAGE NOTED, MANAGER PRACTICE. REDNESS NOTED TO LEFT HIP ABSCESS WITH YELLOW HEAD. PHOTO CONSENT SIGNED & PHOTOS OBTAINED, PLACED ON CHART. DENIES NEED FOR PAIN MEDICATION AND REPORTS TENDERNESS WITH PRESSURE OF LAYING ON ABSCESS, OR PALPATING ABSCESSES. VSS. WILL CONTINUE TO MONITOR.
--- NOTE | 2019-07-05 07:01 | PC.NURSE ---
DR ROSS NOTIFIED OF CONSULT.
--- NOTE | 2019-07-05 07:29 | HMH.PHAVTE ---
[facility] Pharmacy VTE Monitoring - Patient Demographics Admission date: 07/04/19 Report Date: 07/05/19 Time: 07:29 Allergies/Adverse Reactions: Patient Allergies No Known Allergies Allergy (Verified 04/22/19 13:41) Height: 1.83 m Weight: 124.908 kg Patient Problems: Current Active Problems Cellulitis (Acute) Abscess of buttock, right (Acute) Abscess of left leg excluding foot (Acute) Obesity (Acute) - VTE Risk Labs: VTE Related Lab Results Hgb 13.5 g/dL (14.1-18.0) L 07/05/19 05:57 Hct 40.9 % (42.0-52.0) L 07/05/19 05:57 Plt Count 251 K/mm3 (142-424) 07/05/19 05:57 BUN 12 mg/dl (9-20) 07/05/19 05:57 Creatinine 0.70 mg/dl (0.66-1.25) D 07/05/19 05:57 Estimated Creat Clear 137 mL/min (50-200) 07/05/19 05:57 VTE Score: 3 VTE Risk Level: Low Risk - Prophylaxis VTE Prophylaxis Ordered?: Yes Types of VTE Prophylaxis: TEDS Knee High Location of Applied Device: Right Leg - VTE Diagnosis Confirmed Treatment or plan recommended: Continue Current Treatment
--- NOTE | 2019-07-05 07:30 | HMH.PHAINT ---
MED REC-PATIENT IS NOT CURRENTLY TAKING ANY MEDICATIONS AT HOME. -NICKY YANG, STORMYD
--- NOTE | 2019-07-05 08:05 | P.CONPHA_ITS ---
- Pharmacy Consult Date: 07/05/19 Time: 08:05 Referring provider: NEFTALY Reason for Consult:: VANCOMYCIN THERAPY FOR Abscess of buttock, right, Abscess of left leg excluding foot (PER [facility] NOTE BY FATMATA BAER) Allergies and ADEs:: Allergies Allergy/AdvReac Type Severity Reaction Status Date / Time No Known Allergies Allergy Verified 04/22/19 13:41 Home Medications:: Home Medications Medication Instructions Recorded Confirmed Type No Known Home Medications 04/04/19 07/04/19 History Height: 1.83 m Weight: 124.908 kg Laboratory Results:: Laboratory Results - last 24 hr 07/04/19 21:25: WBC 9.9, RBC 5.02, Hgb 14.9, Hct 44.8, MCV 89.2, MCH 29.6, MCHC 33.2, RDW 12.8, Plt Count 275, MPV 7.7, Neut % (Auto) 52.9, Lymph % (Auto) 34.0, [place] % (Auto) 7.1, Eos % (Auto) 4.5, Baso % (Auto) 1.6, Neut # (Auto) 5.2, Lymph # (Auto) 3.4, [place] # (Auto) 0.7, Eos # (Auto) 0.5 H, Baso # (Auto) 0.2 07/04/19 21:25: Sodium 142, Potassium 3.8, Chloride 107, Carbon Dioxide 25, Anion Gap 13.8, BUN 12, Creatinine 0.90, Estimated Creat Clear 85, Estimated GFR 86, Est GFR ( Amer) 104, Glucose 127 H, Calcium 9.2, Total Bilirubin 0.4, AST 27, ALT 23, Alkaline Phosphatase 58, Total Protein 7.4, Albumin 4.0, Globulin 3.4 H, Albumin/Globulin Ratio 1.2 07/04/19 21:25: Lactate 1.4 07/05/19 05:57: WBC 7.7, RBC 4.56 L, Hgb 13.5 L, Hct 40.9 L, MCV 89.8, MCH 29.7, MCHC 33.0, RDW 12.6, Plt Count 251, MPV 7.8, Neut % (Auto) 42.0, Lymph % (Auto) 44.7, [place] % (Auto) 7.0, Eos % (Auto) 5.7, Baso % (Auto) 0.6, Neut # (Auto) 3.2, Lymph # (Auto) 3.5, [place] # (Auto) 0.5, Eos # (Auto) 0.4, Baso # (Auto) 0.1 07/05/19 05:57: Sodium 141, Potassium 3.9, Chloride 109 H, Carbon Dioxide 26, Anion Gap 9.9, BUN 12, Creatinine 0.70 D, Estimated Creat Clear 137, Estimated GFR 115, Est GFR ( Amer) 139 D, Glucose 123 H, Calcium 8.5, Magnesium 1.9 Medical History: Reports:: Hypertension Denies:: Cancer, Diabetes Mellitus Type 1, Diabetes Mellitus Type 2, Internal Pacemaker, MRSA, Seizures Assessment and Plan - Assessment and plan all Dx Assessment and Plan for all problems:: PT RECEIVED VANCOMYCIN 2500MG LOADING DOSE LAST NIGHT AT 2200. WILL CONTINUE VANCOMYCIN 2000MG TODAY AT 1000. WILL CHECK TROUGH AND ADJUST ACCORDINGLY. WILL FOLLOW PT DAILY.
--- NOTE | 2019-07-05 08:11 | HMH.GSCON ---
*Admission Date: 07/04/19 *Reason for consult:: Abscess *History of present illness: Patient is a 59-year-old male from [place]. He had developed a significant soft tissue infection of the left suprapubic area which required incision and drainage and debridement in November 2018. This area had ultimately healed. He had developed what he describes as heat bumps in the right inferior buttock region and also on the left proximal thigh. He attempted to squeeze these and he does state that the left thigh area he evacuated some pus. However, the right buttock area has progressively gotten worse with increased swelling and tenderness. He presented to the [facility] yesterday evening due to the progression symptoms of his buttock soft tissue infection and was admitted for inpatient management and surgical consultation was obtained this morning. Review of Systems - Review of Systems Review of systems:: pertinent systems reviewed and negative unless documented below - *Neurologic Denies headache(s), Denies seizure-like activity [facility] History I have reviewed the patient's past medical history: Yes Medical History: Reports:: Hypertension Denies:: Cancer, Diabetes Mellitus Type 1, Diabetes Mellitus Type 2, Internal Pacemaker, MRSA, Seizures *Have you ever received a pneumonia vaccine?: No *Have you received a flu vaccine this season?: No Other Surgeries: Yes: Colonoscopy, Hernia Repair, Other. No: Pacemaker Amputation: No Fractures: Yes (pt states multiple, unable to state history of all the fractured places. ) - *Social History Educational Level: Attended High School Smoking Status: Former smoker Tobacco Type: cigarettes # Packs/Day (cigarettes): 2 #Yrs smoked (if former smoker): 40 Alcohol Intake: never Alcohol Intake Frequency:: a few times a month Substance Use Type: denies use *Occupational Status:: employed Housing: house Household Members: spouse *Travel in the last 8 weeks: None Family Hx:: Anemia, Coronary Artery Disease, Diabetes, Heart Attack Meds Home Medications Medication Instructions Recorded Confirmed Type No Known Home Medications 04/04/19 07/04/19 History Allergies Allergy/AdvReac Type Severity Reaction Status Date / Time No Known Allergies Allergy Verified 04/22/19 13:41 Exam Vital signs and Labs for Last 24 Hours: Temp Pulse Resp BP Pulse Ox 97.8 F 76 19 141/83 H 95 07/05/19 07:43 07/05/19 07:43 07/05/19 07:43 07/05/19 07:43 07/05/19 07:43 Laboratory Results - last 24 hr 07/04/19 21:25: WBC 9.9, RBC 5.02, Hgb 14.9, Hct 44.8, MCV 89.2, MCH 29.6, MCHC 33.2, RDW 12.8, Plt Count 275, MPV 7.7, Neut % (Auto) 52.9, Lymph % (Auto) 34.0, [place] % (Auto) 7.1, Eos % (Auto) 4.5, Baso % (Auto) 1.6, Neut # (Auto) 5.2, Lymph # (Auto) 3.4, [place] # (Auto) 0.7, Eos # (Auto) 0.5 H, Baso # (Auto) 0.2 07/04/19 21:25: Sodium 142, Potassium 3.8, Chloride 107, Carbon Dioxide 25, Anion Gap 13.8, BUN 12, Creatinine 0.90, Estimated Creat Clear 85, Estimated GFR 86, Est GFR ( Amer) 104, Glucose 127 H, Calcium 9.2, Total Bilirubin 0.4, AST 27, ALT 23, Alkaline Phosphatase 58, Total Protein 7.4, Albumin 4.0, Globulin 3.4 H, Albumin/Globulin Ratio 1.2 07/04/19 21:25: Lactate 1.4 07/05/19 05:57: WBC 7.7, RBC 4.56 L, Hgb 13.5 L, Hct 40.9 L, MCV 89.8, MCH 29.7, MCHC 33.0, RDW 12.6, Plt Count 251, MPV 7.8, Neut % (Auto) 42.0, Lymph % (Auto) 44.7, [place] % (Auto) 7.0, Eos % (Auto) 5.7, Baso % (Auto) 0.6, Neut # (Auto) 3.2, Lymph # (Auto) 3.5, [place] # (Auto) 0.5, Eos # (Auto) 0.4, Baso # (Auto) 0.1 07/05/19 05:57: Sodium 141, Potassium 3.9, Chloride 109 H, Carbon Dioxide 26, Anion Gap 9.9, BUN 12, Creatinine 0.70 D, Estimated Creat Clear 137, Estimated GFR 115, Est GFR ( Amer) 139 D, Glucose 123 H, Calcium 8.5, Magnesium 1.9 I & O for Last 24 hours: Intake & Output 07/02/19 07/03/19 07/04/19 07/05/19 11:59 11:59 11:59 11:59 Intake Total 0 / 0 Balance 0 / 0 Weight 275 lb 6 oz Microbiology R
--- NOTE | 2019-07-05 08:43 | HMH.HP ---
*Admission Date: 07/04/19 *Chief complaint: Abscess *History of present illness: Mr. Ponce is a 59-year-old male from now that seen rarely in our office, on no medications and with no chronic conditions who presented to the ER last night due to concern for abscesses in his thigh and groin area. He has previously had similar abscess in the left suprapubic area requiring I&D back in November 2018. His 2 regions today include a small abscess on left upper thigh and an indurated, painful, actively draining lesion medial posterior upper right thigh. Denies any systemic symptoms of fever, nausea, vomiting. States lesions have been draining when he squeezes them. Came to the ER last night because he was concerned he needed I&D again . He presented to the [facility] yesterday evening due to the progression symptoms of his buttock soft tissue infection and was admitted for inpatient management and surgical consultation was obtained this morning. Admitted for medical management and surgical consult. Surgery seen the patient this morning with plan for I&D. Tolerating IV antibiotics. Denies fever, chest pain, shortness of breath, nausea, vomiting, diarrhea. Overall stable per his report. [facility] History I have reviewed the patient's past medical history: Yes Medical History: Reports:: Hypertension Denies:: Cancer, Diabetes Mellitus Type 1, Diabetes Mellitus Type 2, Internal Pacemaker, MRSA, Seizures *Have you ever received a pneumonia vaccine?: No *Have you received a flu vaccine this season?: No Other Surgeries: Yes: Colonoscopy, Hernia Repair, Other. No: Pacemaker Amputation: No Fractures: Yes (pt states multiple, unable to state history of all the fractured places. ) - *Social History Educational Level: Attended High School Smoking Status: Former smoker Tobacco Type: cigarettes # Packs/Day (cigarettes): 2 #Yrs smoked (if former smoker): 40 Alcohol Intake: never Alcohol Intake Frequency:: a few times a month Substance Use Type: denies use *Occupational Status:: employed Housing: house Household Members: spouse *Travel in the last 8 weeks: None Family Hx:: Anemia, Coronary Artery Disease, Diabetes, Heart Attack Review of Systems - Review of Systems Review of systems:: pertinent systems reviewed and negative unless documented below (14 point review of systems performed, pertinent positives and negatives as per HPI) - *Neurologic Denies headache(s), Denies seizure-like activity Meds Home Medications Medication Instructions Recorded Confirmed Type No Known Home Medications 04/04/19 07/04/19 History Allergies Allergy/AdvReac Type Severity Reaction Status Date / Time No Known Allergies Allergy Verified 04/22/19 13:41 Exam Vital signs and Labs for Last 24 Hours: Temp Pulse Resp BP Pulse Ox 97.8 F 76 19 141/83 H 95 07/05/19 07:43 07/05/19 07:43 07/05/19 07:43 07/05/19 07:43 07/05/19 07:43 Laboratory Results - last 24 hr 07/04/19 21:25: WBC 9.9, RBC 5.02, Hgb 14.9, Hct 44.8, MCV 89.2, MCH 29.6, MCHC 33.2, RDW 12.8, Plt Count 275, MPV 7.7, Neut % (Auto) 52.9, Lymph % (Auto) 34.0, [place] % (Auto) 7.1, Eos % (Auto) 4.5, Baso % (Auto) 1.6, Neut # (Auto) 5.2, Lymph # (Auto) 3.4, [place] # (Auto) 0.7, Eos # (Auto) 0.5 H, Baso # (Auto) 0.2 07/04/19 21:25: Sodium 142, Potassium 3.8, Chloride 107, Carbon Dioxide 25, Anion Gap 13.8, BUN 12, Creatinine 0.90, Estimated Creat Clear 85, Estimated GFR 86, Est GFR ( Amer) 104, Glucose 127 H, Calcium 9.2, Total Bilirubin 0.4, AST 27, ALT 23, Alkaline Phosphatase 58, Total Protein 7.4, Albumin 4.0, Globulin 3.4 H, Albumin/Globulin Ratio 1.2 07/04/19 21:25: Lactate 1.4 07/05/19 05:57: WBC 7.7, RBC 4.56 L, Hgb 13.5 L, Hct 40.9 L, MCV 89.8, MCH 29.7, MCHC 33.0, RDW 12.6, Plt Count 251, MPV 7.8, Neut % (Auto) 42.0, Lymph % (Auto) 44.7, [place] % (Auto) 7.0, Eos % (Auto) 5.7, Baso % (Auto) 0.6, Neut # (Auto) 3.2, Lymph # (Auto) 3.5, [place] # (Auto) 0.5, Eos # (Auto) 0.4, Baso # (Auto) 0.1
--- NOTE | 2019-07-05 09:27 | PC.NURSE ---
PT OFF FLOOR FOR SURGERY [phone]
--- NOTE | 2019-07-05 11:02 | P.PN_ITS ---
[facility] Anesthesia Checklist - Patient Identification Patient Identification: Arm Band, Verbal (Name & ) - Structural Data Admitted From: Inpatient Planned Operative Procedure/s: Right buttocks and left hip I&D Consent for Planned Operative Procedure(s) Verified: Yes Verified Documents: Surgical Consent, History and Physical - NPO Status Verified Time NPO: 00:00 - Chart Verification Results Verified: CBC, BMP - Additional verifications Anesthesia Reactions: No - Airway Assessment C-Spine Mobility Assessed: Yes TMJ Mobility Assessed: Yes Dentition: Edentulous - Neurological Assessment Level of Consciousness: Awake, Alert, Appropriate, Follows Commands Hx Seizures: No Numbness or tingling in extremities: No - Anesthesia Plan Anesthesia Risk discussed: Yes ASA Class: II Anesthesia Type: General (LMA) [facility] History I have reviewed the patient's past medical history: Yes Medical History: Reports:: Hypertension Denies:: Cancer, Diabetes Mellitus Type 1, Diabetes Mellitus Type 2, Internal Pacemaker, MRSA, Seizures *Have you ever received a pneumonia vaccine?: No *Have you received a flu vaccine this season?: No Comment:: obesity Anesthesia experience/problems:: none Other Surgeries: Yes: Colonoscopy, Hernia Repair, Other. No: Pacemaker Amputation: No Fractures: Yes (pt states multiple, unable to state history of all the fractured places. ) - *Social History Educational Level: Attended High School Smoking Status: Former smoker (quit 16-17 years ago) Tobacco Type: cigarettes # Packs/Day (cigarettes): 2 #Yrs smoked (if former smoker): 40 Alcohol Intake: never Alcohol Intake Frequency:: a few times a month Substance Use Type: denies use *Occupational Status:: employed Housing: house Household Members: spouse *Travel in the last 8 weeks: None Family Hx:: Anemia, Coronary Artery Disease, Diabetes, Heart Attack
--- NOTE | 2019-07-05 11:26 | P.OP_ITS ---
Date of procedure: 07/05/19 Pre-op Diagnosis:: Soft tissue infection with complex abscess of right buttock and soft tissue infection of left anterior proximal thigh Post-op Diagnosis:: Same Procedure performed:: Incision and drainage of complex abscess of right buttock region with debridement of skin and subcutaneous tissue. Debridement of skin and limited subcutaneous tissue from left proximal anterior thigh Surgeon:: Sergo Barraza MD MANAGER MONITORING:: Ladarius Liu Anesthesia: GETA Estimated blood loss (mL): 30 Clinical Note:: Patient is a 59-year-old male from [place]. He had developed a significant soft tissue infection of the left suprapubic area which required incision and drainage and debridement in November 2018. This area had ultimately healed. He had developed what he describes as heat bumps in the right inferior buttock region and also on the left proximal thigh. He attempted to squeeze these and he does state that the left thigh area he evacuated some pus. However, the right buttock area has progressively gotten worse with increased swelling and tenderness. He presented to the [facility] yesterday evening due to the progression symptoms of his buttock soft tissue infection and was admitted for inpatient management and surgical consultation was obtained this morning. Operative findings:: He had evidence of complex soft tissue infection of the right buttock with some focal necrotizing cellulitis. Operative note:: Patient was taken to the operating room. General anesthesia was induced. He was positioned in the modified lithotomy position. The area was prepped and draped in the standard surgical fashion. There is an area of focal necrosis with exudate. Limited incision using electrocautery was made around this. There was some necrotic debris and purulent liquid which exuded from the wound. This was sent for culture. There was noted to be some additional evidence consistent with necrotizing cellulitis of the subcutaneous tissue and additional circumferential debridement was carried out until healthy tissues were encountered. There was some tunneling of the abscess cavity in the medial location. Once debridement was carried out the overall size of the wound measured approximately 4 cm in diameter and 2 cm in depth. There was some residual surrounding induration but the tissues appeared healthy. There was some relatively widespread cellulitis as well. Wound was thoroughly irrigated. Hemostasis was achieved with use of electrocautery. Local anesthetic was infiltrated. Wound was packed with a saline moistened Kerlix gauze. Clean dry sterile dressing was applied. Next attention was turned to the inflamed ulcerated area on the left anterior lateral proximal thigh. This area was prepped and draped in the standard surgical fashion. Electrocautery was used for debridement of necrotic exudative skin with limited debridement of underlying subcutaneous tissue. Wound was irrigated. Hemostasis was achieved with electrocautery. Local anesthetic was infiltrated. Wound was packed with a saline moistened gauze and covered with clean dry sterile dressing. Condition: stable Disposition: PACU Complications:: None immediately apparent
--- NOTE | 2019-07-05 11:37 | P.PN_ITS ---
[facility] Anesthesia Record Part I Intake, IV Amount: 100 Estimated blood loss (mL): 10 Urine output (mL): 0 (NM) Blood Products used (#): none Blood Pressure: 155/94 SaO2: 95 Pulse Rate: 74 Respiratory Rate: 14 Temperature: 97.4 F Patient is:: Awake, Drowsy, Stable Stable to PACU at:: 11:32
--- NOTE | 2019-07-05 16:25 | HMH.ANESII ---
[facility] Anesthesia Record Part II Discharge Time: 12:12 Destination: Medical Surgical Department PACU nurse assessment reviewed?: Yes Patient Condition:: Good Anesthesia Complications:: None Swallowing reflex intact?: Yes Cyanosis?: No Blood Pressure: 143/91 Pulse Rate: 66 Temperature: 97.6 F Mental Status: Alert & Oriented Pain level:: 0 Nausea and/or vomitting:: None Intake, IV Amount: 0
--- NOTE | 2019-07-05 19:19 | PC.NURSE ---
REPORT GIVEN TO Brennon NAVARRETE RN
[2019-07-06 04:00] VITALS: BP 127/77; PULSE 71; RESP 16; TEMP 36.4; O2SAT 93
[2019-07-06 05:19] VITALS: BMI 37.3
--- NOTE | 2019-07-06 05:50 | PC.NURSE ---
A&OX3. PERRLA, WOOD SCALER EQUAL BILAT. LUNGS CLEAR T/O AUSCULTATION, TOLERATED RA WELL. ABDOMEN DISTENDED, ACTIVE BOWEL SOUNDS, SOFT AND NONTENDER PER PALPATION. PULSES +2, CAP REFILL <3SEC. DRESSING CHANGE PERFORMED AROUND 2229, PT TOLERATED WELL. HAS DENIED NEED FOR PAIN MEDICATION THIS SHIFT. PACKED THE RIGHT GLUTEAL CLEFT WOUND WITH MOISTENED KERLIX, 4X4 GAUZE PADS, ABD PAD AND MEDIPORE. ON OLD DRESSING, BLOODY SEROUS DRAINAGE SATURATED ON DRESSING. LEFT HIP DRESSING DRESSED WITH MOISTENED KERLIX, 4X4 GAUZE, ABD PADS AND MEDIPORE TAPE, MINIMAL SEROSANGUINEOUS DRAINAGE NOTED TO OLD LEFT HIP DRESSING ON REMOVAL. FOLLOWING DRESSING CHANGE, PT REPORTED FOR NEXT DRESSING CHANGE HE MIGHT WANT THE MORPHINE PRIOR TO DRESSING CHANGE, WILL PASS ON TO DAY SHIFT. PT IS INDEPENDENT WITH ADLS. AMBULATED HALLWAY X1 THIS SHIFT, TOLERATED WELL. VSS. WILL CONTINUE TO MONITOR.
[2019-07-06 06:47] LABS: Basophils % 0.3 % (0.1-2.0); Eosinophils % 0.2 % (0.1-12.0); Hematocrit 39.9 % (42.0-52.0); Hemoglobin 13.1 g/dL (14.1-18.0); Lymphocytes # 2.9 K/mm3 (0.7-4.5); Mean Corpuscular HGB Conc 32.8 g/dL (31.8-35.4); Mean Corpuscular Volume 91.7 fl (80-94); Mean Platelet Volume 7.9 fl (7.4-10.4); Monocytes # 0.7 K/mm3 (0.1-1.0); Monocytes % 6.4 % (1.7-9.3); Neutrophils # 7.5 K/mm3 (1.8-7.8); Neutrophils % 67.1 % (37.0-80.0); Platelet Count 260 K/mm3 (142-424); Red Blood Count 4.35 M/mm3 (4.60-6.20); Red Cell Distribution Width 12.8 % (11.5-17.5); White Blood Count 11.2 K/mm3 (4.8-10.8)
[2019-07-06 06:56] LABS: Blood Urea Nitrogen 9 mg/dl (9-20); Calcium 8.7 mg/dl (8.4-10.2); Carbon Dioxide 25 mmol/L (22.0-30.0); Chloride 108 mmol/L (98-107); Creatinine Clearance Estimated 137 mL/min (50-200); Estimated Glomerular Filt Rate 115 ml/min (>60); GFR (African American) 139 ML/MIN (>60); Glucose 146 mg/dl (74-100); Sodium 137 mmol/L (136-145)
--- NOTE | 2019-07-06 07:22 | HMH.GSPN ---
Subjective Narrative: Patient states that he tolerated a dressing change with minimal pain. Did not require pain medication. Exam Vital signs and Labs for Last 24 Hours: Temp Pulse Resp BP Pulse Ox 97.6 F 71 16 127/77 93 L 07/06/19 04:00 07/06/19 04:00 07/06/19 04:00 07/06/19 04:00 07/06/19 04:00 Laboratory Results - last 24 hr 07/06/19 06:32: WBC 11.2 H D, RBC 4.35 L, Hgb 13.1 L, Hct 39.9 L, MCV 91.7, MCH 30.0, MCHC 32.8, RDW 12.8, Plt Count 260, MPV 7.9, Neut % (Auto) 67.1, Lymph % (Auto) 26.0, L[place]kin % (Auto) 6.4, Eos % (Auto) 0.2, Baso % (Auto) 0.3, Neut # (Auto) 7.5, Lymph # (Auto) 2.9, Lumpkin # (Auto) 0.7, Eos # (Auto) 0.0, Baso # (Auto) 0.0 07/06/19 06:32: Sodium 137, Potassium 4.0, Chloride 108 H, Carbon Dioxide 25, Anion Gap 8.0, BUN 9, Creatinine 0.70, Estimated Creat Clear 137, Estimated GFR 115, Est GFR ( Amer) 139, Glucose 146 H, Calcium 8.7 I & O for Last 24 hours: Intake & Output 07/03/19 07/04/19 07/05/19 07/06/19 11:59 11:59 11:59 11:59 Intake Total 931 / 931 720 / 720 Balance 931 / 931 720 / 720 Weight 275 lb 6 oz 275 lb 8 oz Microbiology Reports for the Last 24 Hours: Microbiology 07/05/19 10:52 Buttock - Abscess Gram Stain - Final 07/04/19 21:04 Hip,Right - Abscess Gram Stain - Final 07/04/19 21:04 Hip,Right - Abscess Wound Culture - Preliminary - *Routine Skin Exam Comments: Dressing clean and intact Progress Note: A&P (1) Hypertension Status: Acute Current Visit: Yes (2) Abscess of buttock, right Status: Acute Current Visit: Yes (3) Abscess of left leg excluding foot Status: Acute Current Visit: Yes (4) Cellulitis Status: Acute Current Visit: Yes (5) Obesity Status: Acute Current Visit: Yes Assessment and Plan for All Diagnoses:: Possible discharge home soon on outpatient dressing changes and antibiotics.
[2019-07-06 08:00] VITALS: BP 162/86; PULSE 75; RESP 18; TEMP 36.4; O2SAT 94
--- NOTE | 2019-07-06 09:58 | HMH.DCSUM ---
General - General Admission date:: 07/04/19 Discharge date: 07/06/19 HPI HPI: Mr. Ponce is a 59-year-old male from now that seen rarely in our office, on no medications and with no chronic conditions who presented to the ER last night due to concern for abscesses in his thigh and groin area. He has previously had similar abscess in the left suprapubic area requiring I&D back in November 2018. His 2 regions today include a small abscess on left upper thigh and an indurated, painful, actively draining lesion medial posterior upper right thigh. Denies any systemic symptoms of fever, nausea, vomiting. States lesions have been draining when he squeezes them. Came to the ER last night because he was concerned he needed I&D again . He presented to the [facility] yesterday evening due to the progression symptoms of his buttock soft tissue infection and was admitted for inpatient management and surgical consultation was obtained this morning. Admitted for medical management and surgical consult. Surgery seen the patient this morning with plan for I&D. Tolerating IV antibiotics. Denies fever, chest pain, shortness of breath, nausea, vomiting, diarrhea. Overall stable per his report. Hospital Course Hospital Course: 59-year-old gentleman with 2 abscesses and cellulitis admitted for IV antibiotics and surgical consult. I&D performed with source control achieved. Significant improvement in surrounding erythema. Remained afebrile hemodynamically stable. Tolerated IV Vanco well. Transition to Zyvox for total of 14 days of therapy. We will follow-up closely by surgery and primary care for further management of abnormalities noted during admission. She denies fever, chest pain, shortness of breath, nausea, vomiting. Pain only with dressing changes. Has assistance at home as his has done dressing changes before on a previous abscess on his abdomen just last year. [facility] to decrease burden of MRSA. Medically stable for discharge home Objective Vital signs: Temp Pulse Resp BP Pulse Ox 97.5 F L 75 18 162/86 H 94 L 07/06/19 08:00 07/06/19 08:00 07/06/19 08:00 07/06/19 08:00 07/06/19 08:00 Narrative: - Constitutional no acute distress, obese, supine in bed on room air - *Routine HEENT Exam Head: Present: normocephalic Eye: Present: EOMI, PERRL ENT: Present: mucous membranes moist - *Routine Neck Exam Present: supple. Absent: lymphadenopathy - *Routine Respiratory Exam Present: CTA bilaterally - *Routine Cardiovascular Exam Present: RRR - *Routine Abdominal Exam Present: soft, normoactive bowel sounds. Absent: tenderness - *Routine Extremities Exam No cyanosis, clubbing, edema; significant improvement in erythema on medial thigh. Very minimal erythema around edge of surgical incision from I&D yesterday. No purulent drainage. Both lesions showing significant improvement. Clean gauze packing in both lesions, no active bleeding, tender to palpation. - *Routine Skin Exam Present: warm. Absent: rash Comments: See exam above - *Routine Neurological Exam Present: alert, oriented X3 Results Labs on day of discharge: Labs from last 24 hours 07/06/19 07/06/19 06:32 06:32 WBC 11.2 H D RBC 4.35 L Hgb 13.1 L Hct 39.9 L MCV 91.7 MCH 30.0 MCHC 32.8 RDW 12.8 Plt Count 260 MPV 7.9 Neut % (Auto) 67.1 Lymph % (Auto) 26.0 Hancock % (Auto) 6.4 Eos % (Auto) 0.2 Baso % (Auto) 0.3 Neut # (Auto) 7.5 Lymph # (Auto) 2.9 [place]ancock # (Auto) 0.7 Eos # (Auto) 0.0 Baso # (Auto) 0.0 Sodium 137 Potassium 4.0 Chloride 108 H Carbon Dioxide 25 Anion Gap 8.0 BUN 9 Creatinine 0.70 Estimated Creat Clear 137 Estimated GFR 115 Est GFR ( Amer) 139 Glucose 146 H Calcium 8.7 Preliminary micro results at discharge 07/05/19 10:52 Abscess Culture - Preliminary Butt
[2019-07-06 11:00] LABS: Hemoglobin A1C 6.3 % (4.0-6.0)
--- NOTE | 2019-07-07 13:27 | PC.NURSE ---
LAb called with MRSA positive results. PT had been seen in the ED and admitted for surgery for the wound.
== END 2019-07-06 13:20 | disposition home or self-care (01) ==
LOC: UTC 20:48 → ER 21:12 → 2ND 22:54
PROVIDERS: Surgery; Admitting Provider Family Medicine; Emergency Provider Emergency Medicine; PCP Internal Medicine Adolescent Medicine; Visit Provider Internal Medicine Adolescent Medicine
DX: L02.31 Cutaneous abscess of buttock (principal); B95.62 Methicillin resistant Staphylococcus aureus infection as the cause of diseases classified elsewhere; L02.416 Cutaneous abscess of left lower limb; L03.317 Cellulitis of buttock; L03.116 Cellulitis of left lower limb; I10 Essential (primary) hypertension; Z87.891 Personal history of nicotine dependence
CPT/HCPCS: 10061; 36415; 80048; 80053; 83036; 83605; 83735; 85025; 87040; 87070; 87075; 87077; 87186; 87205; 88304; 96365; 99284; G0378; J2405; J3370

== ENCOUNTER → 2019-09-16 09:23 | Outpatient (CLI) | payer BC, SELFPAY ==
[2019-09-16 09:55] LABS: Basophils # 0.1 K/mm3 (0-0.2); Basophils % 0.7 % (0.1-2.0); Eosinophils # 0.3 K/mm3 (0.0-0.4); Eosinophils % 3.7 % (0.1-12.0); Hematocrit 42.8 % (42.0-52.0); Hemoglobin 14.8 g/dL (14.1-18.0); Lymphocytes # 3.2 K/mm3 (0.7-4.5); Lymphocytes % 43.6 % (10-50); Mean Corpuscular HGB Conc 34.7 g/dL (31.8-35.4); Mean Corpuscular Hemoglobin 31.2 pg (27.0-31.2); Mean Corpuscular Volume 89.9 fl (80-94); Mean Platelet Volume 7.2 fl (7.4-10.4); Monocytes # 0.4 K/mm3 (0.1-1.0); Monocytes % 5.9 % (1.7-9.3); Neutrophils # 3.4 K/mm3 (1.8-7.8); Neutrophils % 46.1 % (37.0-80.0); Platelet Count 263 K/mm3 (142-424); Red Blood Count 4.76 M/mm3 (4.60-6.20); Red Cell Distribution Width 13.5 % (11.5-17.5); White Blood Count 7.3 K/mm3 (4.8-10.8)
[2019-09-16 10:42] LABS: Chloride 105 mmol/L (98-107); Sodium 138 mmol/L (136-145)
[2019-09-16 10:43] LABS: Potassium 4.1 mmoL/L (3.5-5.1)
[2019-09-16 10:46] LABS: Anion Gap 15.1 mEq/L (5-15); Blood Urea Nitrogen 13 mg/dl (9-20); Calcium 9.1 mg/dl (8.4-10.2); Carbon Dioxide 22 mmol/L (22.0-30.0); Estimated Glomerular Filt Rate 115 ml/min (>60); GFR (African American) 139 ML/MIN (>60); Glucose 119 mg/dl (74-100)
[2019-09-16 11:25] LABS: Coronavirus 19 IgG Antibody Negative (Negative); Coronavirus 19 IgM Antibody Negative (Negative)
[2019-09-16 11:55] LABS: Hemoglobin A1C 6.3 % (4.0-6.0)
== END ==
PROVIDERS: Visit Provider Surgery
DX: L02.211 Cutaneous abscess of abdominal wall (principal); Z01.818 Encounter for other preprocedural examination
CPT/HCPCS: 36415; 80048; 83036; 85025; 86328

== ENCOUNTER 2019-09-16 10:57 | Day surgery (SDC) | payer BC, SELFPAY ==
[2019-09-16] VITALS (10 sets, daily range): BP systolic 130–145; BP diastolic 78–92; PULSE 59–93; RESP 12–21; TEMP 36.2–36.4; O2SAT 93–99; BMI 36.2
[2019-09-16 11:48] LABS: POC Glucose,Bedside 96 (70-110)
--- NOTE | 2019-09-16 13:20 | HMH.OPNOTE ---
Date of procedure: 09/16/19 Pre-op Diagnosis:: Necrotic soft tissue infection of the right medial proximal thigh and left lower abdomen Post-op Diagnosis:: Same Procedure performed:: Incision and drainage abscess on the right medial proximal thigh and left lower abdomen with debridement of skin and subcutaneous tissues Surgeon:: Sergo Barraza MD SALES ADMINISTRATION SPECIALIST:: Ladarius Liu Anesthesia: LMA Estimated blood loss (mL): 10 Clinical Note:: Patient is a 59-year-old newly diagnosed diabetic male. He resides in [place]. I had seen him last fall at which time he had a significant suprapubic abscess requiring incision and drainage and debridement and inpatient stay. The area ultimately had healed. In June of this year he presented with an abscess on the gluteal region and left hip which required an inpatient stay and debridement and incision and drainage. He is been followed in the office regularly and presented to the office today to assess for completeness of healing of these areas. However, he states that about 8 days ago he had developed a couple of new areas. He is unsure of any inciting event. He has an area on the right medial proximal thigh and on the left lower abdominal area. He has had some drainage. On examination he had an area of rather extensive cellulitis with at least 5 cm of central induration and obvious central necrosis on the right medial proximal thigh. There is a similar area although somewhat less widespread cellulitis on the left lower abdomen. Plan was made for operative incision and drainage and debridement Operative findings:: Evidence of focal necrotizing cellulitis with abscess Operative note:: Patient was taken the operating room. He was given preoperative intravenous antibiotics. In the operating room he was placed in a supine position. General anesthesia was induced. Right medial proximal thigh and lower abdomen were prepped and draped in the standard surgical fashion. There is an obvious central area of necrosis with some surrounding induration. Limited incision was made with electrocautery. There was some purulent drainage. Cultures were sent. Necrotic tissue was debrided including skin and subcutaneous tissue. There was some underlying necrosis of the subcutaneous tissues which was debrided as well. Wound was probed. Some additional skin and subcutaneous tissue was debrided which appeared somewhat ischemic. Wound was thoroughly irrigated. Hemostasis was achieved with electrocautery. Local anesthetic was infiltrated. Next attention was turned to the wound on the lower abdomen. There is an obvious central area of necrosis with some surrounding induration. Once again limited incision was made of the obvious necrotic tissues using electrocautery. Debrided skin and subcutaneous tissues were sent as a specimen. There was some underlying pus and focal necrotizing cellulitis. Cultures were sent. Wound was opened somewhat medially and laterally where there is some undermining to allow for dressing changes. Wound was irrigated. Hemostasis was achieved with electrocautery. Local anesthetic was infiltrated. Both wounds were packed with saline moistened gauze and covered with clean dry sterile dressings. Condition: stable Disposition: PACU Specimens:: Debrided tissue and cultures sent Complications:: None immediately apparent
--- NOTE | 2019-09-16 13:28 | HMH.ANESCL ---
[facility] Anesthesia Checklist - Patient Identification Patient Identification: Arm Band, Verbal (Name & ) - Structural Data Admitted From: Home Planned Operative Procedure/s: I&D right thigh, lower abdomen Consent for Planned Operative Procedure(s) Verified: Yes Verified Documents: Surgical Consent, History and Physical - NPO Status Verified Time NPO: 06:00 (Coffee and creamer) - Chart Verification Results Verified: CBC, BMP - Additional verifications Fingerstick Blood Glucose: 96 Anesthesia Reactions: No Hx Blood Transfusions: No Blood Transfusion Reaction: No - Airway Assessment C-Spine Mobility Assessed: Yes TMJ Mobility Assessed: Yes Dentition: Edentulous - Neurological Assessment Level of Consciousness: Awake, Alert, Appropriate, Follows Commands Hx Seizures: No Numbness or tingling in extremities: No - Anesthesia Plan Anesthesia Risk discussed: Yes Anesthesia Plan: Verified ASA Class: III Anesthesia Type: General (with LMA) [facility] History I have reviewed the patient's past medical history: Yes Medical History: Reports:: Diabetes Mellitus Type 2, Hypertension Denies:: Cancer, Diabetes Mellitus Type 1, Internal Pacemaker, MRSA, Seizures *Have you ever received a pneumonia vaccine?: No *Have you received a flu vaccine this season?: No Other Medical History: Denies: Blood Transfusion Reaction Comment:: obesity Anesthesia experience/problems:: No prior complications Other Surgeries: Yes: Colonoscopy, Hernia Repair, Other. No: Pacemaker Amputation: No Fractures: Yes (pt states multiple, unable to state history of all the fractured places. ) - *Social History Last grade of school completed: GED Smoking Status: Never smoker Tobacco Type: cigarettes # Packs/Day (cigarettes): 2 #Yrs smoked (if former smoker): 40 Alcohol Intake: current Alcohol Intake Frequency:: a few times a month Substance Use Type: denies use *Occupational Status:: employed Housing: house Household Members: spouse *Travel in the last 8 weeks: None Family Hx:: Anemia, Coronary Artery Disease, Diabetes, Heart Attack
--- NOTE | 2019-09-16 13:30 | HMH.ANESI ---
[facility] Anesthesia Record Part I Intake, IV Amount: 900 Estimated blood loss (mL): 5 Urine output (mL): 0 Blood Products used (#): none Blood Pressure: 136/83 SaO2: 93 Pulse Rate: 73 Respiratory Rate: 14 Temperature: 97.2 F Patient is:: Awake, Drowsy, Stable Stable to PACU at:: 13:22
--- NOTE | 2019-09-17 13:56 | P.PN_ITS ---
[facility] Anesthesia Record Part II Discharge Time: 13:55 Destination: Surgical Day Care (OP Surgery) PACU nurse assessment reviewed?: Yes Patient Condition:: Good Anesthesia Complications:: None Swallowing reflex intact?: Yes Cyanosis?: No Blood Pressure: 144/84 Pulse Rate: 63 Temperature: 97.6 F Mental Status: Alert & Oriented Pain level:: 0 Nausea and/or vomitting:: None Intake, IV Amount: 0 (normovolemic)
[2019-09-17 13:58] VITALS: BP 144/84; PULSE 63; TEMP 36.4
== END 2019-09-16 14:30 | disposition home or self-care (01) ==
LOC: OR 10:59
PROVIDERS: PCP Internal Medicine Adolescent Medicine; Visit Provider Surgery
PROC: (CPT 27301; principal; 2019-09-16 13:00)
DX: L02.415 Cutaneous abscess of right lower limb (principal); B95.62 Methicillin resistant Staphylococcus aureus infection as the cause of diseases classified elsewhere; L02.211 Cutaneous abscess of abdominal wall; Z16.11 Resistance to penicillins; Z16.39 Resistance to other specified antimicrobial drug; Z16.29 Resistance to other single specified antibiotic; L03.115 Cellulitis of right lower limb; L03.311 Cellulitis of abdominal wall; E11.9 Type 2 diabetes mellitus without complications; I10 Essential (primary) hypertension; E66.9 Obesity, unspecified; Z68.36 Body mass index [BMI] 36.0-36.9, adult
CPT/HCPCS: 27301; 10061; 82962; 87070; 87077; 87186; 87205; 96374; J2405

== ENCOUNTER → 2020-02-04 07:03 | Outpatient (CLI) | payer BC, SELFPAY ==
[2020-02-04 12:43] LABS: Coronavirus 19 IgG Antibody Positive (Negative); Coronavirus 19 IgM Antibody Negative (Negative)
== END ==
PROVIDERS: Visit Provider Surgery
DX: Z01.818 Encounter for other preprocedural examination (principal); Z12.11 Encounter for screening for malignant neoplasm of colon
CPT/HCPCS: 36415; 86328

== ENCOUNTER → 2020-06-26 15:04 | Outpatient (CLI) | payer BC, SELFPAY | PROVIDERS: PCP Internal Medicine Adolescent Medicine; Visit Provider Nurse Practitioner | DX: Z11.1 Encounter for screening for respiratory tuberculosis (principal) ==

== ENCOUNTER → 2021-03-13 12:27 | Outpatient (CLI) | payer BC, SELFPAY ==
--- NOTE | 2021-03-13 12:36 | XR_ITS ---
FINAL REPORT CLINICAL HISTORY: right shoulder pain FINDINGS: RIGHT SHOULDER: 3 views of the right shoulder were obtained. There is no acute fracture or dislocation. There are mild degenerative changes of the acromioclavicular and glenohumeral joints. There is no soft tissue abnormality. IMPRESSION: Mild degenerative change. Reviewed, Interpreted and Dictated by Sergo Luther III, MD Transcribed by Shabbir Burnett Authenticated by Sergo Luther III, MD on 03/13/2021 01:43:[address] [facility]
== END ==
PROVIDERS: PCP Internal Medicine Adolescent Medicine; Visit Provider Orthopaedic Surgery
DX: M25.511 Pain in right shoulder (principal)
CPT/HCPCS: 73030

== ENCOUNTER → 2021-03-26 09:03 | Outpatient (CLI) | payer BC, SELFPAY ==
--- NOTE | 2021-03-26 09:03 | MR_ITS ---
FINAL REPORT CLINICAL HISTORY: rt shoulder pain, limited rom FINDINGS: Multi planar MR imaging of the right shoulder was performed. There is mild abnormal signal at the insertion of the supraspinatus tendon. There is no abnormal fluid in the subacromial/subdeltoid bursa. There is abnormal signal in the anterior labrum with a linear component concerning for anterior labral tear on images 13-15 of series 3. The biceps tendon appears intact. There are [id number] hypertrophic changes at the AC joint. IMPRESSION: Partial insertional tear of the distal supraspinatus tendon. Partial tear of the anterior labrum. Reviewed, Interpreted and Dictated by Thomas Aly MD Transcribed by Shabbir Burnett Authenticated by Thomas Aly MD on 03/26/2021 11:18:16 AM [facility]
== END ==
PROVIDERS: PCP Internal Medicine Adolescent Medicine; Visit Provider Orthopaedic Surgery
DX: M75.21 Bicipital tendinitis, right shoulder (principal)
CPT/HCPCS: 73221

== ENCOUNTER → 2022-02-10 11:01 | Outpatient (CLI) | payer BC, SELFPAY ==
--- NOTE | 2022-02-10 11:01 | IR_ITS ---
FINAL REPORT CLINICAL HISTORY: shoulder pain...46 fluoro time 5 cc of isovue 20 ml saline FINDINGS: RIGHT SHOULDER INJECTION FOR MRI ARTHROGRAM HISTORY: Acute right shoulder pain. Attending radiologist: Dr. Luther Physician expanded duty dental assistant: Kieran Painter PA-C PROCEDURE: After informed consent was obtained, a time-out was performed. Utilizing local anesthesia and sterile technique, with direct fluoroscopic guidance, access to the joint was obtained . A small amount of contrast was injected to confirm needle tip location. Additional dilute gadolinium contrast was injected. IMPRESSION: Status post injection for right shoulder MRI arthrogram without immediate complication. Please see MRI report. FLUOROSCOPY TIME: 46 seconds. 2 radiographs were obtained. Films reviewed , interpreted and dictated by Dr. Luther. Transcribed by Kieran Painter PA-C. Reviewed, Interpreted and Dictated by Sergo Luther III, MD Transcribed by SIMÓN Hooper Authenticated and [facility]
--- NOTE | 2022-02-10 11:01 | MR_ITS ---
FINAL REPORT CLINICAL HISTORY: shoulder pain. weakness in arm. limited rom COMPARISON: March 2021 FINDINGS: Multiplanar MR imaging of the right shoulder was performed after the intra-articular injection of dilute gadolinium solution. Motion on all the images decreases exam sensitivity. There is in homogeneous fat saturation causing artifact that obscures parts of the anatomy. There is supraspinatus tendinosis. There is no full-thickness rotator cuff tendon tear. There is no evidence of contrast leakage from the glenohumeral joint to the subacromial/subdeltoid bursa. The a.c. joint is intact. The labrum is obscured by artifact on many images. On series 3, image 16 there is irregularity of the anterior-inferior labrum worrisome for a tear. Contrast at the base of the superior labrum for favors a sublabral foramen over a tear. The long head of the biceps tendon is intact. There is a small subchondral cyst in the superior humeral head. The musculature is intact. No soft tissue mass or cyst is identified. IMPRESSION: Suboptimal exam secondary to artifact. Findings worrisome for tear of the anterior-inferior labrum. Supraspinatus tendinosis without full-thickness tear. Reviewed, Interpreted and Dictated by Sergo Luther III, MD Transcribed by Shabbir Burnett Authenticated and . [facility]
== END ==
PROVIDERS: PCP Internal Medicine Adolescent Medicine; Visit Provider Physician Assistant Surgical
DX: M75.41 Impingement syndrome of right shoulder (principal)
CPT/HCPCS: 73040; 73222; Q9967

== ENCOUNTER 2024-06-24 08:43 | Day surgery (SDC) | payer MEDICARE, SELFPAY ==
[2024-06-22 15:40] VITALS: BMI 39.3
[2024-06-24 09:07] VITALS: BP 160/96; PULSE 74; RESP 18; TEMP 36.2; O2SAT 95
[2024-06-24] MEDS: LACTATED RINGERS 1000ML 1,000 ML 50 ML IV (09:07)
[2024-06-24 09:19] LABS: POC Glucose,Bedside 130 (70-110)
--- NOTE | 2024-06-24 09:39 | EXP.GEN.HP ---
HPI HPI HPI: Patient presents for follow-up surveillance colonoscopy. I have previously seen him for various soft tissue infections. Also previously did colonoscopy on 04/05/2019. Patient had previous colonoscopies on several occasions done by Dr. 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 He had a colonoscopy in 2010 which he had tubular adenoma x 7. His next colonoscopy performed on 04/05/2019 at which time he had at least 14 polyps removed after a prolonged procedure lasting 1 hour 24 minutes. All 14 of these were tubular adenomas. Recommendations were for follow-up colonoscopy in 6 months after his colonoscopy on 04/05/2019 particularly that he had proximal transverse colon polyp and splenic flexure polyp which required removal in a piecemeal fashion using hot snare. These areas were marked with Manda ink. He is not having any symptoms. He states that he had been unable to follow-up for colonoscopy due to health issues with his . [facility] Disclaimer: The information contained in this section may have been updated after the patient was seen, as this information can be updated by other users. 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 current occupational exposures/hazards: Yes caffeine: No Have you lived/traveled outside [place] in past 30 days?: No Contact w/someone who lives/traveled outside [place] past 30 days?: No Exposure to someone with infectious disease in past 14 days?: No Do you have a fever (greater than 100.4 F or 38 C)?: No Have you tested positive for COVID-19: No Exposed to someone with COVID-19 in past 14 days?: No Do you have a sore throat?: No Do you have a cough?: No Do you have any weakness?: No Do you have any diarrhea?: No Are you experiencing any unusual bleeding?: No Do you have any muscle aches/pain?: No Do you have any abdominal pain?: No Are you experiencing loss of taste or smell?: No Other Medical History Have you received the Flu Vaccine for this season: No Have you received the Pneumonia Vaccine: No Meds Home Medications and Allergies Home Medications ?Medication ?Instructions ?Recorded ?Confirmed ?Type sodium,potassium,mag sulfates 17.5 See Rx Instructions PO .COMPLEX 06/13/24 06/24/24 Rx gram-3.13 gram-1.6 gram oral soln #354 mL (Suprep Bowel Prep Kit) New Prescriptions to Start Prescriptions: Allergies Allergy/AdvReac Type Severity Reaction Status Date / Time No Known Allergies Allergy Verified 03/27/22 09:55 Exam Data for Last 24 hours Vital signs and Labs for Last 24 Hours: Temp Pulse Resp BP Pulse Ox O2 Del Method 97.1 F L 74 18 160/96 H 95 Room Air 06/24/24 09:07 06/24/24 09:07 06/24/24 09:07 06/24/24 09:07 06/24/24 09:07 06/24/24 09:07 Laboratory Results - last 24 hr 06/24/24 09:12: POC Glucose 130 H I & O for Last 24 hours: Intake & Output 06/21/24 06/22/24 06/23/24 06/24/24 11:59 11:59 11:59 11:59 Weight 290 lb Constitutional Constitutional: no acute distress *Routine HEENT Exam Head: Present normocephalic Eye: Present EOMI and PERRL ENT: Present mucous membranes moist *Routine Neck Exam Neck: Present supple; Absent lymphadenopathy *Routine Respiratory Exam Respiratory: Present CTA bilaterally *Routine Cardiovascular Exam Cardiovascular: Present RRR *Routine Abdominal Exam Abdominal: Present soft and normoactive bowel sounds; Absent tenderness *Routine Rectal Exam Rectal:: deferred *Routine Genitalia Exam Genitalia:: deferred *Routine Extremities Exam Extremities: Absent cyanosis, clubbing or edema *Routine Skin Exam Skin: Present warm; Absent rash *Routine Neurological Exam Neurological: Present alert and oriented X3 Results Results Lab Results Last 24 Hours:: Laboratory Results - last 24 hr 06/24/24 09:12: POC Glucose 130 H Assessment and Plan *Assessment and plan (1) Tubular adenoma of colon: Status: Acute Category: Medical Code(s): D12.6 - Benign neoplasm of colon, unspecified Plan Plan to proceed with colonoscopy
--- NOTE | 2024-06-24 09:56 | P.PNANES_ITS ---
[facility] Disclaimer: The information contained in this section may have been updated after the patient was seen, as this information can be updated by other users. 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 current occupational exposures/hazards: Yes caffeine: No Have you lived/traveled outside [place] in past 30 days?: No Contact w/someone who lives/traveled outside [place] past 30 days?: No Exposure to someone with infectious disease in past 14 days?: No Do you have a fever (greater than 100.4 F or 38 C)?: No Have you tested positive for COVID-19: No Exposed to someone with COVID-19 in past 14 days?: No Do you have a sore throat?: No Do you have a cough?: No Do you have any weakness?: No Do you have any diarrhea?: No Are you experiencing any unusual bleeding?: No Do you have any muscle aches/pain?: No Do you have any abdominal pain?: No Are you experiencing loss of taste or smell?: No [facility] Anesthesia Checklist Patient Identification Patient Identification: Verbal (Name & ) Structural Data Admitted From: Home Planned Operative Procedure/s: colonoscopy Consent for Planned Operative Procedure(s) Verified: Yes NPO Status Verified Time NPO: 00:00 Additional verifications Anesthesia Reactions: No Hx Blood Transfusions: No Blood Transfusion Reaction: No Airway Assessment Mallampati Score:: Class II C-Spine Mobility Assessed: Yes TMJ Mobility Assessed: Yes Dentition: Edentulous Neurological Assessment Level of Consciousness: Awake, Alert and Appropriate Anesthesia Plan Anesthesia Risk discussed: Yes Anesthesia Plan: Verified ASA Class: II Anesthesia Type: MAC
[2024-06-24 10:03] VITALS: O2SAT 95
--- NOTE | 2024-06-24 10:47 | P.PCN_ITS ---
Procedure: Date: 06/24/24 Patient Date of :: 1960 Procedure Performed:: Total colonoscopy to terminal ileum with numerous polypectomy Indications:: Patient presents for follow-up surveillance colonoscopy. I have previously seen him for various soft tissue infections. Also previously did colonoscopy on 04/05/2019. Patient had previous colonoscopies on several occasions done by Dr. 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 He had a colonoscopy in 2010 which he had tubular adenoma x 7. His next colonoscopy I performed on 04/05/2019 at which time he had at least 14 polyps removed after a prolonged procedure lasting 1 hour 24 minutes. All 14 of these were tubular adenomas. Recommendations were for follow-up colonoscopy in 6 months after his colonoscopy on 04/05/2019 particularly that he had proximal transverse colon polyp and splenic flexure polyp which required removal in a piecemeal fashion using hot snare followed by marking the areas with Manda ink. He is not having any symptoms. He states that he had been unable to follow-up for colonoscopy due to health issues with his . Performing Provider:: Sergo Barraza MD Referring Provider:: Pepe Watts MD Sedation:: MAC sedation Procedure:: Patient history was obtained and appropriate physical examination was performed. Patient's medications and allergies were reviewed. Informed consent was obtained after explaining the benefits, alternatives, and risks of the procedure including, but not limited to, bleeding, perforation, missed lesions, and ad verse reaction to anesthesia medications. Patient was transported to endoscopy procedure room. Patient was connected to monitoring devices. Throughout the procedure the patient's blood pressure, p ulse, and oxygen saturations were monitored continuously. Patient identification and planned procedure were verified by the staff. Patient was positioned in lateral decubitus position. Digital anorectal exam was performed. Variable stiffness Olympus colonoscope was inserted and advanced under direct visualization to the cecum. Adequacy of the colonic preparation was noted. The colonoscope was advanced a short distance into the terminal ileum. The colonoscope was then slowly withdrawn while carefully examining the color, texture, anatomy, and integrity of the mucosoa circumferentially. Within the rectum retroflexion was performed. Colonoscope was then withdrawn. Impression: Colonic preparation was good. Within the cecum there were 5 adenomatous appearing sessile polyps, small, 4 of which were removed with cold snare and 1 removed with biopsy forceps. In the ascending colon there was a sessile irregular small polyp removed with cold snare. In the sigmoid colon there was an obvious somewhat pedunculated adenomatous polyp. Plan was for removal with 13 mm hot snare. However the snare cut through without the need for cautery. This was in the sigmoid polyp. The rectosigmoid region there was a diminutive possible hyperplastic polyp removed with biopsy forceps. There was a diminutive possible hyperplastic rectal polyp removed with biopsy forceps. There was an area of focal pigmentation within the rectum which was biopsied. . Findings:: Polyps as noted above. He had a total of 9 polyps Focal area of pigmentation in the rectum, biopsy, likely inconsequential Recommendations:: Repeat colonoscopy pending pathology. Likely within 2 years Complications:: None immediately apparent Estimated blood obtained (mL): 2 Colonoscopy Component Colonoscopy Component Was a colonoscopy performed during today's procedure?: Yes Recommended follow up colonoscopy of at least 10 years?: No If no, follow up colonoscopy recommended in ___ years?: 2 Reason for not recommending >/= 10 yr follow-up interval?: polyps
[2024-06-24 10:48] VITALS: BP 90/50; PULSE 67; RESP 16; TEMP 36.1; O2SAT 92
[2024-06-24 10:58] VITALS: BP 92/53; PULSE 65; RESP 16; O2SAT 94
[2024-06-24 11:08] VITALS: BP 113/76; PULSE 72; RESP 16; O2SAT 94
[2024-06-24 11:16] VITALS: BP 129/75; PULSE 68; RESP 16; O2SAT 96
== END 2024-06-24 11:20 | disposition home or self-care (01) ==
PROVIDERS: PCP Nurse Practitioner Family; Visit Provider Surgery
PROC: 0DJD8ZZ Inspection of Lower Intestinal Tract, Via Natural or Artificial Opening Endoscopic (ICD-10-PCS; CPT 45380; principal; 2024-06-24 09:30)
DX: Z12.11 Encounter for screening for malignant neoplasm of colon (principal); Z86.0101 Personal history of adenomatous and serrated colon polyps; D12.2 Benign neoplasm of ascending colon; D12.0 Benign neoplasm of cecum; D12.5 Benign neoplasm of sigmoid colon; K63.5 Polyp of colon; E11.9 Type 2 diabetes mellitus without complications
CPT/HCPCS: 45380; 45385; 82962; J7120

== ENCOUNTER 2025-01-12 12:40 | Outpatient (CLI) | payer MEDICARE, SELFPAY ==
--- NOTE | 2025-01-12 12:50 | XR_ITS ---
FINAL REPORT CLINICAL HISTORY: PERSISTENT COUGH COMPARISON: none FINDINGS: No acute pulmonary density is evident. There is no evidence of effusion or other pleural disease. The mediastinum has a normal appearance. The cardiac silhouette is unremarkable. IMPRESSION: Unremarkable chest exam. Reviewed, Interpreted and Dictated by Ban Alvarez MD Transcribed by Rita Velasquez Authenticated and [facility]
== END 2025-01-12 23:59 | disposition home or self-care (01) ==
PROVIDERS: PCP Nurse Practitioner Family; Visit Provider Nurse Practitioner Family
DX: R05.3 Chronic cough (principal)
CPT/HCPCS: 71046

== ENCOUNTER 2025-02-13 09:58 | Outpatient (CLI) | payer MEDICARE, SELFPAY ==
[2025-02-14 11:12] LABS: PSA, Free 0.99 ng/mL
== END 2025-02-13 23:59 | disposition home or self-care (01) ==
LOC: LAB 10:00
PROVIDERS: PCP Nurse Practitioner Family; Visit Provider Urology
DX: N40.1 Benign prostatic hyperplasia with lower urinary tract symptoms (principal)
CPT/HCPCS: 84153; 84154